=== PATIENT | female | born 1985 | race Hispanic/Latino ===

== ENCOUNTER 2018-03-08 15:18 | Emergency (ER) | payer BC ==
[2018-03-08 16:56] LABS: Urine Bacteria <20 /HPF (<20); Urine Culture Reflex Order NOT NEEDED; Urine RBC <5 /HPF (NONE SEEN)
[2018-03-08 17:07] LABS: Urine Specific Gravity 1.015 (1.005-1.030)
[2018-03-08] MEDS ORDERED: FENTANYL CITR 100 MCG/2 ML ONE (17:20)
--- NOTE | 2018-03-08 17:43 | RAD REPORT ---
EXAM DESCRIPTION: US - Transvaginal Study Probe - 03/08/2018 4:58 pm CLINICAL HISTORY: Abdominal pain, left-sided pelvic pain Preliminary findings provided at the time of the study. COMPARISON: None. TECHNIQUE: Endovaginal sonography was performed. FINDINGS: IUD is in place appearing well positioned. Nabothian cysts are present in the cervix. No m yometrial mass identifiable. A 12 millimeter simple right ovarian cyst is present. Doppler evaluation shows normal blood flow in the right ovarian stroma. No suspicious ovarian or adnexal finding on the right. Left ovary was not identifiable. No left adnexal mass seen. No free fluid or blood in the cul-de-sac. Uterus is 7.4 x 4.6 x 5.6 cm. Right ovary is 2.8 x 2.4 x 2.6 cm. IMPRESSION: Normal size uterus showing no suspicious endometrial or myometrial finding. IUD is well positioned in the fundal portion cervical canal. Small 12 mm cyst right ovary with no right adnexal abnormality. Nonvisualization of the left ovary with no left adnexal mass seen.
--- NOTE | 2018-03-08 18:03 | RAD REPORT ---
EXAM DESCRIPTION: CT - Stone Protocol - 03/08/2018 5:51 pm CLINICAL HISTORY: Flank pain. HERNIA COMPARISON: Stone Protocol dated 03/25/2017 TECHNIQUE: Axial images were obtained without oral or IV contrast. Lack of contrast limits solid org an and vascular assessment. The [id number] spans the entirety of the system partially obscuring uppermost abdomen and lung bases. Coronal reformatted images were obtained and reviewed. All CT scans are performed using dose optimization technique as appropriate and may include automated exposure control or mA/KV adjustment according to patient size. FINDINGS: The lower lung velasco are clear. Imaged portions of the liver and spleen show no suspicious findings on non-contrast imaging. The panc reas and adrenal glands are normal. No pathologic lymphadenopathy in the abdomen or pelvis. No urinary tract stones or obstructive uropathy. No bowel obstruction, free air, free fluid or abscess. Normal appendix noted. No significant bony abnormality. IUD is present in the uterus. Inferior left rectus muscle appears th ickened relative to the right measuring up to 3 cm with mild adjacent fat stranding. This is likely t he result of a moderate rectus muscle strain/hematoma. IMPRESSION: Moderate inferior left rectus muscle strain/ hematoma.
--- NOTE | 2018-03-08 18:13 | ER ---
Nurse's Notes [facility] Name: Barbie Jack Age: 33 yrs Sex: Female : 1985 Arrival Date: 03/08/2018 Time: 15:20 Bed 17 Private MD: Gurjit Easton Diagnosis: Muscle spasm;Muscle tear Presentation: 03/08 15:56 Presenting complaint: Patient states: pt report she was working out and felt a pull in sg her right groin, reports worse when not moving, feels better with walking and activity. Transition of care: patient was not received from another setting of care. Onset of symptoms was March 08, 2018. Risk Assessment: Do you want to hurt yourself or someone else? Patient reports no desire to harm self or others. Initial Sepsis Screen: Does the patient meet any 2 criteria? No. Patient's initial sepsis screen is negative. Does the patient have a suspected source of infection? No. Patient's initial sepsis screen is negative. Care prior to arrival: None. 15:56 Method Of Arrival: Ambulatory sg 15:56 Acuity: AMY 4 sg Historical: - Allergies: 15:22 No Known Allergies; sg - PSHx: 15:22 None; sg - Immunization history:: Adult Immunizations up to date. - Social history:: Smoking status: Patient/guardian denies using tobacco. - Ebola Screening: : Patient negative for fever greater than or equal to 101.5 degrees Fahrenheit, and additional compatible Ebola Virus Disease symptoms Patient denies exposure to infectious person Patient denies travel to an Ebola-affected area in the 21 days before illness onset No symptoms or risks identified at this time. Screenin:00 Abuse screen: Denies threats or abuse. Denies injuries from another. Nutritional hb screening: No deficits noted. Tuberculosis screening: No symptoms or risk factors identified. Fall Risk None identified. Assessment: 16:02 General: Appears in no apparent distress. Behavior is calm, cooperative. Pain: Pain hb currently is 7 out of 10 on a pain scale. Neuro: Level of Consciousness is awake, alert, obeys commands, Oriented to person, place, time, situation. Cardiovascular: Capillary refill < 3 seconds Patient's skin is warm and dry. Respiratory: Airway is patent Respiratory effort is even, unlabored, Respiratory pattern is regular, symmetrical. GI: No signs and/or symptoms were reported involving the gastrointestinal system. : No signs and/or symptoms were reported regarding the genitourinary system. EENT: No signs and/or symptoms were reported regarding the EENT system. Derm: No signs and/or symptoms reported regarding the dermatologic system. Skin is intact, is healthy with good turgor. Musculoskeletal: Reports groin pain. 17:00 Reassessment: Patient appears in no apparent distress at this time. No changes from hb previously documented assessment. Patient and/or family updated on plan of care and expected duration. Pain level reassessed. Patient is alert, oriented x 3, equal unlabored respirations, skin warm/dry/pink. 18:00 Reassessment: Patient appears in no apparent distress at this time. No changes from hb previously documented assessment. Patient and/or family updated on plan of care and expected duration. Pain level reassessed. Patient is alert, oriented x 3, equal unlabored respirations, skin warm/dry/pink. Vital Signs: 15:57 BP 132 / 82; Pulse 70; Resp 16 S; Pulse Ox 100% on R/A; Pain 7/10; sg 17:00 BP 126 / 76; Pulse 72; Resp 15; Pulse Ox 100% on R/A; hb 18:00 BP 114 / 78; Pulse 60; Resp 15; Pulse Ox 100% on R/A; hb ED Course: 15:20 Patient arrived in ED. sb2 15:20 Gurjit Easton DO is Private Physician. sb2 15:22 [facility] Valdiv[facility]C [facility] snw 15:22 Ramos Freedman MD is Attending Physician. snw 15:22 Arm band placed on. sg 15:55 Bre Groves, RN is Primary Nurse. hb 15:57 Triage completed. sg 16:00 Patient has correct armband on for positive identification. Bed in low position. Call light in reach. Side rails up X 1. 16:05 Radiology exam delayed due to lab results not completed at this time. test aa4 not completed at this time. 16:43 Patient taken to ultrasound. via wheelchair. cy 16:58 Transvaginal Study Probe In Process Unspecified. EDMS 17:[address] via wheelchair. vr 17:52 CT Stone Protocol In Process Unspecified. EDMS 18:12 Gurjit Easton DO is Referral Physician. snw 18:30 No provider procedures requiring assistance completed. Patient did not have IV access hb during this emergency room visit. Administered Medications: 17:22 Drug: fentaNYL (PF) 50 mcg Route: IM; Site: right deltoid; hb 18:00 Follow up: Response: No adverse reaction; Pain is decreased hb Outcome: 18:13 Discharge ordered by MD. snw 18:30 Discharged to home ambulatory. hb 18:30 Condition: stable 18:30 Discharge instructions given to patient, Instructed on discharge instructions, follow up and referral plans. medication usage, Demonstrated understanding of instructions, follow-up care, medications, Prescriptions given X 2. 18:40 Patient left the ED. hb Signatures: Dispatcher [employer] EDMS Burak Forrester, RN RN Kandy Riggins, FELT HAT INSPECTOR AND PACKER-C FELT HAT INSPECTOR AND PACKER-Csnw [place] Victoria vr Baxter, Heather, RN RN Darien Sanchez Sheri sb2
--- NOTE | 2018-03-08 18:13 | EDPHYS ---
Physician Documentation [facility] Name: Barbie Jack Age: 33 yrs Sex: Female : 1985 Arrival Date: 03/08/2018 Time: 15:20 Bed 17 Private MD: Lisa Eastonh ED Physician Ramos Freedman HPI: 03/08 16:07 This 33 yrs old Female presents to ER via Ambulatory with complaints of Left snw groin Pain. 16:08 The patient presents with left groin tenderness. Onset: The symptoms/episode snw began/occurred suddenly, this morning. The symptoms do not radiate. Associated signs and symptoms: none. The symptoms are described as shooting, stabbing. Severity of pain: At its worst the pain was moderate severe. The patient has not experienced similar symptoms in the past. The patient has not recently seen a physician. took 800mg ibuprofen. Historical: - Allergies: 15:22 No Known Allergies; sg - PSHx: 15:22 None; sg - Immunization history:: Adult Immunizations up to date. - Social history:: Smoking status: Patient/guardian denies using tobacco. - Ebola Screening: : Patient negative for fever greater than or equal to 101.5 degrees Fahrenheit, and additional compatible Ebola Virus Disease symptoms Patient denies exposure to infectious person Patient denies travel to an Ebola-affected area in the 21 days before illness onset No symptoms or risks identified at this time. ROS: 16:08 Constitutional: Negative for fever, chills, and weight loss, Eyes: Negative for injury, snw pain, redness, and discharge, ENT: Negative for injury, pain, and discharge, Neck: Negative for injury, pain, and swelling, Cardiovascular: Negative for chest pain, palpitations, and edema, Respiratory: Negative for shortness of breath, cough, wheezing, and pleuritic chest pain, Back: Negative for injury and pain, : Negative for injury, bleeding, discharge, and swelling, MS/Extremity: Negative for injury and deformity, Skin: Negative for injury, rash, and discoloration, Neuro: Negative for headache, weakness, numbness, tingling, and seizure. 16:08 Abdomen/GI: Positive for abdominal pain. Exam: 16:08 Constitutional: This is a well developed, well nourished patient who is awake, alert, snw and in no acute distress. Head/Face: Normocephalic, atraumatic. Eyes: Pupils equal round and reactive to light, extra-ocular motions intact. Lids and lashes normal. Conjunctiva and sclera are non-icteric and not injected. Cornea within normal limits. Periorbital areas with no swelling, redness, or edema. ENT: Nares patent. No nasal discharge, no septal abnormalities noted. Tympanic membranes are normal and external auditory canals are clear. Oropharynx with no redness, swelling, or masses, exudates, or evidence of obstruction, uvula midline. Mucous membranes moist. Neck: Trachea midline, no thyromegaly or masses palpated, and no cervical lymphadenopathy. Supple, full range of motion without nuchal rigidity, or vertebral point tenderness. No Meningismus. Chest/axilla: Normal chest wall appearance and motion. Nontender with no deformity. No lesions are appreciated. Cardiovascular: Regular rate and rhythm with a normal S1 and S2. No gallops, murmurs, or rubs. Normal PMI, no JVD. No pulse deficits. Respiratory: Lungs have equal breath sounds bilaterally, clear to auscultation and percussion. No rales, rhonchi or wheezes noted. No increased work of breathing, no retractions or nasal flaring. Back: No spinal tenderness. No costovertebral tenderness. Full range of motion. Skin: Warm, dry with normal turgor. Normal color with no rashes, no lesions, and no evidence of cellulitis. MS/ Extremity: Pulses equal, no cyanosis. Neurovascular intact. Full, normal range of motion. Neuro: Awake and alert, GCS 15, oriented to person, place, time, and situation. Cranial nerves II-XII grossly intact. Motor strength 5/5 in all extremities. Sensory grossly intact. Cerebellar exam normal. Normal gait. 16:08 Abdomen/GI: Inspection: abdomen appears normal, Bowel sounds: normal, Palpation: moderate abdominal tenderness, severe abdominal tenderness, in the left lower quadrant. Vital Signs: 15:57 BP 132 / 82; Pulse 70; Resp 16 S; Pulse Ox 100% on R/A; Pain 7/10; sg 17:00 BP 126 / 76; Pulse 72; Resp 15; Pulse Ox 100% on R/A; hb 18:00 BP 114 / 78; Pulse 60; Resp 15; Pulse Ox 100% on R/A; hb MDM: 16:01 Patient medically screened. snw 18:31 Data reviewed: vital signs, nurses notes. Data interpreted: Pulse oximetry: on room air snw is 100 %. Interpretation: normal. Counseling: I had a detailed discussion with the patient and/or guardian regarding: the historical points, exam findings, and any diagnostic results supporting the discharge/admit diagnosis, lab results, radiology results, the need for outpatient follow up, to return to the emergency department if symptoms worsen or persist or if there are any questions or concerns that arise at home. Special discussion: Based on the history and exam findings, there is no indication for further emergent testing or inpatient evaluation. I discussed with the patient/guardian the need to see the primary care provider for further evaluation of the symptoms. 03/08 15:23 Order name: Urine Culture snw 03/08 15:23 Order name: Urine Microscopic Only; Complete Time: 17:00 snw 03/08 16:34 Order name: Urine --Ancillary (enter results); Complete Time: 17:08 bd 03/08 16:42 Order name: Transvaginal Study Probe; Complete Time: 17:45 EDMS 03/08 16:56 Order name: CT Stone Protocol; Complete Time: 18:10 snw 03/08 15:23 Order name: Urine Test (obtain specimen); Complete Time: 16:12 snw 03/08 15:23 Order name: Urine Dipstick-Ancillary (obtain specimen); Complete Time: 16:12 snw Administered Medications: 17:22 Drug: fentaNYL (PF) 50 mcg Route: IM; Site: right deltoid; hb 18:00 Follow up: Response: No adverse reaction; Pain is decreased hb Disposition: 03/09 07:27 Co-signature as Attending Physician, Ramos Freedman MD I agree with the assessment and dionicio plan of care. Disposition: 03/08/18 18:13 Discharged to Home. Impression: Muscle spasm, Muscle tear. - Condition is Stable. - Discharge Instructions: Muscle Cramps and Spasms, Muscle Strain, Muscle Pain, Adult, Heat Therapy. - Prescriptions for Diclofenac Sodium 75 mg Oral Tablet Sustained Release - take 1 tablet by ORAL route 2 times per day; 30 tablet. orphenadrine citrate 100 mg Oral Tablet Sustained Release - take 1 tablet by ORAL route 2 times per day As needed; 20 tablet. - Work release form, Medication Reconciliation Form, Thank You Letter, Antibiotic Education, Prescription Opioid Use form. - Follow up: Gurjit Easton DO; When: 2 - 3 days; Reason: Recheck today's complaints, Continuance of care, Re-evaluation by your physician. Follow up: Emergency Department; When: As needed; Reason: Worsening of condition. Signatures: Dispatcher [employer] [facility] Burak Forrester, Ramos Davis RN, MD MD cha Therrien, Shelly, CLOTH SANDER-C CLOTH SANDER-Csnw Bre Groves RN RN Corrections: (The following items were deleted from the chart) 03/08 16:42 16:01 Pelvis Complete+US.RAD.BRZ ordered. [facility] 18:40 18:13 03/08/2018 18:13 Discharged to Home. Impression: Muscle spasm; Muscle tear. hb Condition is Stable. Forms are Medication Reconciliation Form, Thank You Letter, Antibiotic Education, Prescription Opioid Use. Follow up: Gurjit Easton; When: 2 - 3 days; Reason: Recheck today's complaints, Continuance of care, Re-evaluation by your physician. Follow up: Emergency Department; When: As needed; Reason: Worsening of condition. snw
[2018-03-08 18:46] VITALS: O2SAT 100
[2018-03-08 18:49] VITALS: BP 114/78
== END 2018-03-08 18:40 | disposition home or self-care (01) ==
LOC: ER 15:18
DX: S39.011A Strain of muscle, fascia and tendon of abdomen, initial encounter (principal); M62.838 Other muscle spasm
CPT/HCPCS: 74176; 76377; 76830; 81015; 81025; 87086; 87088; 96372; 99284; J3010

== ENCOUNTER 2019-07-05 15:49 | Emergency (ER) | payer BC, SELFPAY ==
--- NOTE | 2019-07-05 17:24 | EDPHYS ---
Physician Documentation [facility] Name: Barbie Antoine Age: 34 yrs Sex: Female : 1985 Arrival Date: 07/05/2019 Time: 15:51 Bed 23 Private MD: ED Physician Ramos Freedman HPI: 07/05 17:01 This 34 yrs old Female presents to ER via Ambulatory with complaints of jr8 Headache, Weakness. 17:01 The patient complains of pain to the diffuse. Onset: The symptoms/episode jr8 began/occurred acutely, today. Associated signs and symptoms: Pertinent positives: malaise, sore throat, rash on lip. Severity of symptoms: At its worst the pain was mild, in the emergency department the pain is unchanged. The symptoms are alleviated by nothing. the symptoms are aggravated by nothing. The patient has not experienced similar symptoms in the past. The patient has not recently seen a physician. Stated that she took some Ibuprofen that helped but still not feeling well. 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 - Social history:: Smoking status: Patient/guardian denies using tobacco. - Ebola Screening: : No symptoms or risks identified at this time. ROS: 17:01 Eyes: Negative for injury, pain, redness, and discharge, Neck: Negative for injury, jr8 pain, and swelling, Cardiovascular: Negative for chest pain, palpitations, and edema, Respiratory: Negative for shortness of breath, cough, wheezing, and pleuritic chest pain, Abdomen/GI: Negative for abdominal pain, nausea, vomiting, diarrhea, and constipation, Back: Negative for injury and pain, MS/Extremity: Negative for injury and deformity, Skin: Negative for injury, rash, and discoloration. 17:01 Constitutional: Positive for malaise. 17:01 ENT: Positive for sore throat, Negative for drainage from ear(s), ear pain, rhinorrhea, sinus congestion, difficulty swallowing, difficulty handling secretions, hoarseness. 17:01 Neuro: Positive for headache, Negative for altered mental status, dizziness, gait disturbance, hearing loss, loss of consciousness, numbness, seizure activity, speech changes, syncope, near syncope, tingling, tinnitus, tremor, visual changes, weakness. Exam: 17:01 Eyes: Pupils equal round and reactive to light, extra-ocular motions intact. Lids and jr8 lashes normal. Conjunctiva and sclera are non-icteric and not injected. Cornea within normal limits. Periorbital areas with no swelling, redness, or edema. ENT: Nares patent. No nasal discharge, no septal abnormalities noted. Tympanic membranes are normal and external auditory canals are clear. Oropharynx with mild posterior pharyngeal and tonsillar redness. No swelling, or masses, exudates, or evidence of obstruction, uvula midline. Mucous membranes moist. Neck: Trachea midline, no thyromegaly or masses palpated, and no cervical lymphadenopathy. Supple, full range of motion without nuchal rigidity, or vertebral point tenderness. No Meningismus. Cardiovascular: Regular rate and rhythm with a normal S1 and S2. No gallops, murmurs, or rubs. Normal PMI, no JVD. No pulse deficits. Respiratory: Lungs have equal breath sounds bilaterally, clear to auscultation and percussion. No rales, rhonchi or wheezes noted. No increased work of breathing, no retractions or nasal flaring. Abdomen/GI: Soft, non-tender, with normal bowel sounds. No distension or tympany. No guarding or rebound. No evidence of tenderness throughout. Back: No spinal tenderness. No costovertebral tenderness. Full range of motion. Skin: Warm, dry with normal turgor. Normal color with no rashes, no lesions, and no evidence of cellulitis. MS/ Extremity: Pulses equal, no cyanosis. Neurovascular intact. Full, normal range of motion. Neuro: Awake and alert, GCS 15, oriented to person, place, time, and situation. Cranial nerves II-XII grossly intact. Motor strength 5/5 in all extremities. Sensory grossly intact. Cerebellar exam normal. Normal gait. 17:01 Head/face: Noted is vesicular rash noted to upper lip. Vital Signs: 16:00 BP 140 / 83; Pulse 80; Resp 16; Temp 97.7; Pulse Ox 100% on R/A; Weight 79.38 kg; hb Height 5 ft. 5 in. (165.10 cm); Pain 0/10; 17:00 BP 122 / 76; Pulse 76; Resp 17 S; Pulse Ox 100% on R/A; ca1 16:00 Body Mass Index 29.12 (79.38 kg, 165.10 cm) hb MDM: 16:34 Patient medically screened. [facility] 17:22 Data reviewed: vital signs, nurses notes, lab test result(s), and as a result, I will jr8 discharge patient. Data interpreted: Pulse oximetry: on room air is 100 %. Interpretation: normal. Counseling: I had a detailed discussion with the patient and/or guardian regarding: the historical points, exam findings, and any diagnostic results supporting the discharge/admit diagnosis, lab results, the need for outpatient follow up, a family practitioner, to return to the emergency department if symptoms worsen or persist or if there are any questions or concerns that arise at home. 07/05 16:40 Order name: Strep; Complete Time: 17:22 ca1 07/05 16:40 Order name: Flu; Complete Time: 17:22 ca1 Administered Medications: 17:27 Drug: TORadol - Ketorolac 15 mg Route: IM; Site: right deltoid; ca1 17:27 Follow up: Response: Medication administered at discharge. ca1 Disposition: 07/06 07:14 Co-signature as Attending Physician, Ramos Freedman MD I agree with the assessment and [facility] plan of care. Disposition: 07/05/19 17:23 Discharged to Home. Impression: Acute streptococcal tonsillitis, unspecified, Herpesviral [herpes simplex] infections. - Condition is Stable. - Discharge Instructions: Strep Throat, Tonsillitis. - Prescriptions for Augmentin 875- 125 mg Oral Tablet - take 1 tablet by ORAL route every 12 hours for 10 days; 20 tablet. Acyclovir 400 mg Oral Tablet - take 1 tablet by ORAL route every 8 hours for 7 days; 21 tablet. - Medication Reconciliation Form, Thank You Letter, Antibiotic Education, Prescription Opioid Use, Work release form form. - Follow up: Private Physician; When: 1 week; Reason: Recheck today's complaints, Continuance of care, Re-evaluation by your physician. - Problem is new. - Symptoms have improved. Signatures: Dispatcher [employer] Ramos Florian MD MD cha Roszak, Josh, PA PA jr8 Bre Groves, RN RN hb Marissa Shaw RN RN ca1 Corrections: (The following items were deleted from the chart) 07/05 17:30 17:23 07/05/2019 17:23 Discharged to Home. Impression: Acute streptococcal tonsillitis, jr8 unspecified. Condition is Stable. Forms are Medication Reconciliation Form, Thank You Letter, Antibiotic Education, Prescription Opioid Use. Follow up: Private Physician; When: 1 week; Reason: Recheck today's complaints, Continuance of care, Re-evaluation by your physician. Problem is new. Symptoms have improved. jr8 17:37 17:30 07/05/2019 17:23 Discharged to Home. Impression: Acute streptococcal tonsillitis, ca1 unspecified; Herpesviral [herpes simplex] infections. Condition is Stable. Discharge Instructions: Strep Throat, Tonsillitis. Prescriptions for Augmentin 875-125 mg Oral Tablet - take 1 tablet by ORAL route every 12 hours for 10 days; 20 tablet, Acyclovir 400 mg Oral Tablet - take 1 tablet by ORAL route every 8 hours for 7 days; 21 tablet. and Forms are Medication Reconciliation Form, Thank You Letter, Antibiotic Education, Prescription Opioid Use, Work release form. Follow up: Private Physician; When: 1 week; Reason: Recheck today's complaints, Continuance of care, Re-evaluation by your physician. Problem is new. Symptoms have improved. jr8
--- NOTE | 2019-07-05 17:24 | ER ---
Nurse's Notes [facility] Name: Barbie Antoine Age: 34 yrs Sex: Female : 1985 Arrival Date: 07/05/2019 Time: 15:51 Bed 23 Private MD: Diagnosis: Acute streptococcal tonsillitis, unspecified;Herpesviral [herpes simplex] infections Presentation: 07/05 15:58 Presenting complaint: Sore throat, difficulty swallowing, and subjective fever x 3 hb days, blisters on upper lip and headache upon waking today. Transition of care: patient was not received from another setting of care. Onset of symptoms was July 03, 2019. Risk Assessment: Do you want to hurt yourself or someone else? Patient reports no desire to harm self or others. Initial Sepsis Screen: Does the patient meet any 2 criteria? No. Patient's initial sepsis screen is negative. Does the patient have a suspected source of infection? No. Patient's initial sepsis screen is negative. Care prior to arrival: None. 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 - Social history:: Smoking status: Patient/guardian denies using tobacco. - Ebola Screening: : No symptoms or risks identified at this time. Screenin:35 Abuse screen: Denies threats or abuse. Denies injuries from another. Nutritional ca1 screening: No deficits noted. Tuberculosis screening: No symptoms or risk factors identified. Fall Risk None identified. Assessment: 16:35 General: Appears in no apparent distress. comfortable, Behavior is calm, cooperative, ca1 appropriate for age. General: Reports chills for 1-2 days. Pain: Complains of pain in all over Pain currently is 7 out of 10 on a pain scale. Neuro: Level of Consciousness is awake, alert, obeys commands, Oriented to person, place, time, situation. Cardiovascular: Heart tones S1 S2 present Capillary refill < 3 seconds Patient's skin is warm and dry. Respiratory: Airway is patent Respiratory effort is even, unlabored, Respiratory pattern is regular, symmetrical, Breath sounds are clear bilaterally. GI: Abdomen is round non-distended, Bowel sounds present X 4 quads. Abd is soft and non tender X 4 quads. : No signs and/or symptoms were reported regarding the genitourinary system. EENT: Throat is reddened has enlarged tonsils bilaterally with gag reflex present. Derm: Skin is intact, is healthy with good turgor, Skin is pink, warm \T\ dry. Musculoskeletal: Circulation, motion, and sensation intact. Capillary refill < 3 seconds. 17:28 Reassessment: Patient appears in no apparent distress at this time. Patient is alert, ca1 oriented x 3, equal unlabored respirations, skin warm/dry/pink. Vital Signs: 16:00 BP 140 / 83; Pulse 80; Resp 16; Temp 97.7; Pulse Ox 100% on R/A; Weight 79.38 kg; hb Height 5 ft. 5 in. (165.10 cm); Pain 0/10; 17:00 BP 122 / 76; Pulse 76; Resp 17 S; Pulse Ox 100% on R/A; ca1 16:00 Body Mass Index 29.12 (79.38 kg, 165.10 cm) hb ED Course: 15:51 Patient arrived in ED. ag5 16:00 Triage completed. hb 16:00 Arm band placed on. hb 16:29 Marissa Shaw, RN is Primary Nurse. ca1 16:30 Leo Zuniga PA is PHCP. jr8 16:34 Ramos Freedman MD is Attending Physician. [facility] 16:35 Patient has correct armband on for positive identification. Bed in low position. Call ca1 light in reach. Side rails up X 1. Pulse ox on. NIBP on. Warm blanket given. 16:35 No provider procedures requiring assistance completed. Patient did not have IV access ca1 during this emergency room visit. Administered Medications: 17:27 Drug: TORadol - Ketorolac 15 mg Route: IM; Site: right deltoid; ca1 17:27 Follow up: Response: Medication administered at discharge. ca1 Outcome: 17:23 Discharge ordered by . jr8 17:36 Discharged to home ambulatory. ca1 17:36 Condition: stable 17:36 Discharge instructions given to patient, Instructed on discharge instructions, follow up and referral plans. medication usage, Demonstrated understanding of instructions, follow-up care, medications, Prescriptions given X 2. 17:37 Patient left the ED. ca1 Signatures: Ramos Freedman MD MD cha Roszak, Josh, PA PA jr8 Bre Groves, RN RN Marissa Shaw RN RN ca1 Bambi Meade ag5 Corrections: (The following items were deleted from the chart) 17:28 17:28 BP 122 / 76; Pulse 76bpm; Resp 17bpm; Spontaneous; Pulse Ox 100% RA; ca1 ca1
[2019-07-05] MEDS ORDERED: KETOROLAC 30 MG/ML INJ ONE (17:28)
[2019-07-05 17:52] VITALS: TEMP 97.7; O2SAT 100
[2019-07-05 17:53] VITALS: BP 122/76
== END 2019-07-05 17:37 | disposition home or self-care (01) ==
LOC: ER 15:49
DX: J03.00 Acute streptococcal tonsillitis, unspecified (principal); B00.9 Herpesviral infection, unspecified
CPT/HCPCS: 87081; 87804; 96372; 99283

== ENCOUNTER 2020-01-18 21:38 | Emergency (ER) | payer SELFPAY ==
[2020-01-18] MEDS ORDERED: MORPHINE 2 MG/ML SYR ONE (23:15)
[2020-01-18 23:24] LABS: Absolute Lymphocytes (CBC) 2.7 K/uL (0.7-4.9); Basophils % 0.7 % (0-1.3); Lymphocytes % 30.6 % (15.3-44.8); MPV 8.3 fL (7.6-11.3)
[2020-01-18] MEDS ORDERED: MEPERIDINE HCL 25 MG/ML SYR ONE (23:40)
[2020-01-18 23:41] LABS: Potassium 3.4 mmol/L (3.5-5.1)
--- NOTE | 2020-01-19 01:36 | ER ---
Nurse's Notes [facility] Name: Barbie Antoine Age: 35 yrs Sex: Female : 1985 Arrival Date: 01/18/2020 Time: 21:42 Bed 14 Private MD: Diagnosis: Abdominal and pelvic pain;Other ovarian cysts Presentation: 01/17 21:52 Chief complaint: Patient states: Lower abdominal cramping, mostly on the RLQ, constant ca1 radiating to the back. PT has IUD and reports unable to feel the string today. Denies vaginal bleeding. Reports nausea with the pain. Coronavirus screen: Patient denies a cough. Patient denies shortness of breath or difficulty breathing. Patient denies measured and/or subjective temperature greater than 100.4F prior to today's visit. Patient denies travel on a cruise ship or to a country the [facility] currently lists as an affected area. Patient denies contact with known and/or suspected case of COVID-19. Proceed with normal triage. Ebola Screen: Patient negative for fever greater than or equal to 101.5 degrees Fahrenheit, and additional compatible Ebola Virus Disease symptoms Patient denies exposure to infectious person. Patient denies travel to an Ebola-affected area in the 21 days before illness onset. No symptoms or risks identified at this time. Initial Sepsis Screen: Does the patient meet any 2 criteria? No. Patient's initial sepsis screen is negative. Does the patient have a suspected source of infection? No. Patient's initial sepsis screen is negative. Risk Assessment: Do you want to hurt yourself or someone else? Patient reports no desire to harm self or others. Onset of symptoms was January 18, 2020. 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 - Social history:: Smoking status: Patient denies any tobacco usage or history of. - Family history:: not pertinent. - Hospitalizations: : No recent hospitalization is reported. Screenin:08 Abuse screen: Denies threats or abuse. Nutritional screening: No deficits noted. mt2 Tuberculosis screening: No symptoms or risk factors identified. Fall Risk None identified. Assessment: 22:08 Reassessment: Patient and/or family updated on plan of care and expected duration. Pain mt2 level reassessed. Patient is alert, oriented x 3, equal unlabored respirations, skin warm/dry/pink. PER PT BELIEVES IUD IS DISPLACED. Neuro: No deficits noted. Cardiovascular: No deficits noted. Respiratory: No deficits noted. GI: No deficits noted. : No deficits noted. : Reports DISCOMFORT DUE TO IUD OUT OF PLACED. EENT: No deficits noted. Derm: No deficits noted. Musculoskeletal: No deficits noted. 22:10 Pain: Complains of pain in pelvis Pain currently is 6 out of 10 on a pain scale. mt2 Quality of pain is described as crampy. 23:00 Reassessment: Patient and/or family updated on plan of care and expected duration. Pain mt2 level reassessed. Patient is alert, oriented x 3, equal unlabored respirations, skin warm/dry/pink. General: Appears uncomfortable, Behavior is cooperative. Pain: Complains of pain in pelvis Pain currently is 10 out of 10 on a pain scale. Quality of pain is described as crampy. 01/18 00:13 Reassessment: Patient and/or family updated on plan of care and expected duration. Pain mt2 level reassessed. Patient is alert, oriented x 3, equal unlabored respirations, skin warm/dry/pink. Patient denies pain at this time. General: Appears comfortable, Behavior is cooperative. 01:13 Reassessment: Patient and/or family updated on plan of care and expected duration. Pain mt2 level reassessed. Patient is alert, oriented x 3, equal unlabored respirations, skin warm/dry/pink. Patient denies pain at this time. General: Appears comfortable, Behavior is calm, cooperative. Vital Signs: 01/17 21:52 BP 136 / 95; Pulse 69; Resp 17 S; Temp 97.5(TE); Pulse Ox 100% on R/A; Weight 76.66 kg ca1 (R); Height 5 ft. 5 in. (165.10 cm) (R); 22:30 BP 141 / 92; Pulse 75; Resp 22; Pulse Ox 100% ; Pain 10/10; mt2 01/18 00:13 BP 120 / 78; Pulse 98; Pulse Ox 100% on R/A; Pain 0/10; mt2 01:14 BP 104 / 79; Pulse 81; Resp 16; Pulse Ox 100% ; Pain 0/10; mt2 01/17 21:52 Body Mass Index 28.12 (76.66 kg, 165.10 cm) ca1 ED Course: 01/17 21:42 Patient arrived in ED. es 21:50 Concha Malloy RN is Primary Nurse. mt2 21:54 Triage completed. ca1 21:55 Arm band placed on right wrist. ca1 22:09 Dileep Gonzalez MD is Attending Physician. rn 22:10 Patient has correct armband on for positive identification. Placed in gown. Bed in low mt2 position. Call light in reach. Side rails up X 1. 22:54 US Pelvis Complete In Process Unspecified. EDMS 23:05 Inserted saline lock: 20 gauge in right forearm, using aseptic technique. Blood jd3 collected. 01/18 00:12 CT Abd/Pelvis - IV Contrast Only In Process Unspecified. EDMS 01:55 No provider procedures requiring assistance completed. IV discontinued, intact, mt2 bleeding controlled, No redness/swelling at site. Pressure dressing applied. Administered Medications: 01/17 23:11 Drug: morphine 2 mg Route: IVP; Site: right forearm; mt2 23:37 Follow up: Response: No adverse reaction; Pain is unchanged, physician notified mt2 23:36 Drug: Demerol 25 mg Route: IVP; Site: right forearm; mt2 01/18 00:13 Follow up: Response: No adverse reaction; Pain is decreased mt2 Outcome: 01:35 Discharge ordered by . rn 01:55 Discharged to home mt2 01:55 Condition: good 01:55 Discharge instructions given to patient, Instructed on discharge instructions, follow up and referral plans. Demonstrated understanding of instructions, follow-up care, medications, Prescriptions given X 2. 01:56 Patient left the ED. mt2 Signatures: Dispatcher [employer] EDMelissa Gant Roman, MD MD rn Davies, Jonathon, RN RN jd3 Colin, Marissa RN DIONE ca1 Concha Malloy RN RN mt2
--- NOTE | 2020-01-19 01:36 | EDPHYS ---
Physician Documentation [facility] Name: Barbie Antoine Age: 35 yrs Sex: Female : 1985 Arrival Date: 01/18/2020 Time: 21:42 Bed 14 Private MD: ED Physician Dileep Gonzalez HPI: 01/17 23:01 This 35 yrs old Female presents to ER via Ambulatory with complaints of rn cramps,iud check. 23:01 The patient presents with abdominal pain right lower quadrant. Onset: The rn symptoms/episode began/occurred just prior to arrival. The symptoms do not radiate. The symptoms are described as crampy. Modifying factors: The symptoms are alleviated by nothing, the symptoms are aggravated by nothing. Severity of pain: At its worst the pain was moderate in the emergency department the pain has improved. The patient has not experienced similar symptoms in the past. The patient has not recently seen a physician. Reports 2 hours of intermittent cramping, right pelvic pain, no trauma, reports didn't feel IUD string today and checks weekly. NO fever/vomiting/diarrhea. Reports slight increased urinary frequency. Reports abnormal pap smear 3 years ago and hasn't followed up. . 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 - Social history:: Smoking status: Patient denies any tobacco usage or history of. - Family history:: not pertinent. - Hospitalizations: : No recent hospitalization is reported. ROS: 23:01 Constitutional: Negative for fever, chills, and weight loss, Eyes: Negative for injury, rn pain, redness, and discharge, Neck: Negative for injury, pain, and swelling, Cardiovascular: Negative for chest pain, palpitations, and edema, Respiratory: Negative for shortness of breath, cough, wheezing, and pleuritic chest pain, Abdomen/GI: Negative for nausea, vomiting, diarrhea, and constipation, Back: Negative for injury and pain, : Negative for injury, and swelling, MS/Extremity: Negative for injury and deformity, Skin: Negative for injury, rash, and discoloration, Neuro: Negative for headache, weakness, numbness, tingling, and seizure. Exam: 23:01 Constitutional: This is a well developed, well nourished patient who is awake, alert, rn and in no acute distress. Head/Face: Normocephalic, atraumatic. Cardiovascular: Regular rate and rhythm. No pulse deficits. Respiratory: No increased work of breathing, no retractions or nasal flaring. Abdomen/GI: soft, mild right pelvic tenderness, no rebound or masses Skin: Warm, dry MS/ Extremity: Pulses equal, no cyanosis. Neurovascular intact. Full, normal range of motion. Equal circumference. Neuro: Awake and alert, GCS 15 Vital Signs: 21:52 BP 136 / 95; Pulse 69; Resp 17 S; Temp 97.5(TE); Pulse Ox 100% on R/A; Weight 76.66 kg ca1 (R); Height 5 ft. 5 in. (165.10 cm) (R); 22:30 BP 141 / 92; Pulse 75; Resp 22; Pulse Ox 100% ; Pain 10/10; mt2 01/18 00:13 BP 120 / 78; Pulse 98; Pulse Ox 100% on R/A; Pain 0/10; mt2 01:14 BP 104 / 79; Pulse 81; Resp 16; Pulse Ox 100% ; Pain 0/10; mt2 01/17 21:52 Body Mass Index 28.12 (76.66 kg, 165.10 cm) ca1 MDM: 01/17 22:09 Patient medically screened. rn 01/18 00:19 ED course: No acute findings on u/s per u/s tech, no torsion or cyst, no pelvic free rn fluid, IUD seems in place. . 00:19 ED course: UPT neg.. rn 01:33 Differential diagnosis: appendicitis, non-specific abd pain, Ovarian Torsion, Tubal rn Ovarian Abcess, Ureterolithiasis, urinary tract infection, ovarian cyst. Data reviewed: vital signs, nurses notes, lab test result(s), radiologic studies, CT scan, ultrasound, and as a result, I will discharge patient. Counseling: I had a detailed discussion with the patient and/or guardian regarding: the historical points, exam findings, and any diagnostic results supporting the discharge/admit diagnosis, lab results, radiology results, the need for outpatient follow up, to return to the emergency department if symptoms worsen or persist or if there are any questions or concerns that arise at home. Response to treatment: the patient's symptoms have markedly improved after treatment, the patient's condition has returned to base line, the patient is now symptom free, and as a result, I will discharge patient. ED course: Neg UA/UPT, neg CT abdomen and u/s of pelvis, patient reports some vaginal discharge, will treat as possible PID vs ovarian cyst causing pain. States sexual partner is not exclusive. Has [employer] appt in 7 week. Return precautions given and understood. . 01/17 22:15 Order name: Basic Metabolic Panel; Complete Time: 00:03 01/17 22:15 Order name: CBC with Diff; Complete Time: 23:34 01/17 22:15 Order name: US Pelvis Complete 01/17 22:42 Order name: Urine Dipstick--Ancillary (enter results) [facility] 01/17 22:42 Order name: Urine --Ancillary (enter results) [facility] 01/17 22:43 Order name: CT Abd/Pelvis - IV Contrast Only 01/17 22:15 Order name: Urine Test (obtain specimen); Complete Time: 23:04 01/17 22:15 Order name: IV Saline Lock; Complete Time: 23:04 01/17 22:15 Order name: Labs collected and sent; Complete Time: 23:04 01/17 22:15 Order name: NPO; Complete Time: 22:24 01/17 22:15 Order name: Urine Dipstick-Ancillary (obtain specimen); Complete Time: 23:04 rn Administered Medications: 01/17 23:11 Drug: morphine 2 mg Route: IVP; Site: right forearm; mt2 23:37 Follow up: Response: No adverse reaction; Pain is unchanged, physician notified mt2 23:36 Drug: Demerol 25 mg Route: IVP; Site: right forearm; mt2 01/18 00:13 Follow up: Response: No adverse reaction; Pain is decreased mt2 Disposition: 01/19/20 01:35 Discharged to Home. Impression: Abdominal and pelvic pain, Other ovarian cysts. - Condition is Stable. - Discharge Instructions: Ovarian Cyst, Pelvic Pain, Female. - Prescriptions for Flagyl 500 mg Oral Tablet - take 1 tablet by ORAL route every 12 hours for 10 days; 20 tablet. Doxycycline Monohydrate 100 mg Oral Tablet - take 1 tablet by ORAL route every 12 hours for 10 days; 20 tablet. - Medication Reconciliation Form, Thank You Letter, Antibiotic Education, Prescription Opioid Use form. - Follow up: Private Physician; When: As needed; Reason: Recheck today's complaints, Re-evaluation by your physician. - Problem is new. - Symptoms have improved. Signatures: Dispatcher [employer] EDMS Dileep Gonzalez MD MD rn Acob, DIONE Ann RN ca1 Concha Malloy RN RN mt2 Corrections: (The following items were deleted from the chart) 01:56 01:35 01/19/2020 01:35 Discharged to Home. Impression: Abdominal and pelvic pain; Other mt2 ovarian cysts. Condition is Stable. Forms are Medication Reconciliation Form, Thank You Letter, Antibiotic Education, Prescription Opioid Use. Follow up: Private Physician; When: As needed; Reason: Recheck today's complaints, Re-evaluation by your physician. Problem is new. Symptoms have improved. rn
[2020-01-19 02:14] VITALS: TEMP 97.5; O2SAT 100
[2020-01-19 02:19] VITALS: BP 104/79
[2020-01-19 02:41] LABS: Urine Blood NEGATIVE (NEG); Urine Glucose NEGATIVE (NEG); Urine Protein 1+ (NEG); Urine Specific Gravity 1.015 (1.005-1.030); Urine pH >8.5 (5.0-7.0)
--- NOTE | 2020-01-19 08:07 | RAD REPORT ---
EXAM DESCRIPTION: US - Pelvis Complete - 01/18/2020 10:53 pm CLINICAL HISTORY: Pelvic pain COMPARISON: CT scan January 18, 2020 FINDINGS: The uterus measures 9 x 5 x 4 centimeters. An IUD is present within the endometrium. No ut erine fibroid. Small nabothian cysts within the cervix The ovaries are normal in size and echotexture with normal blood flow The right and left adnexae are unremarkable No significant free fluid IMPRESSION: Unremarkable pelvic ultrasound
--- NOTE | 2020-01-19 16:53 | RAD REPORT ---
EXAM DESCRIPTION: CT - Abdomen Pelvis W Contrast - 01/19/2020 4:32 am CLINICAL HISTORY: 35-year-old female with RIGHT pelvic pain. COMPARISON: None. TECHNIQUE: CT of the abdomen and pelvis was performed following intravenous administration of contra st. Oral contrast was not administered. Multiplanar reformatted images were provided. This exam was p erformed according to our departmental dose optimization program which includes use of automated expo sure control, adjustment of the mA and/or kV according to patient size and/or use of iterative recons truction technique. FINDINGS: Chest: Evaluation through the lung bases reveals no focal opacity, pleural effusion or pne umothorax. Heart size is within normal limits. No pericardial effusion. Abdomen and pelvis: The liver, gallbladder, pancreas, spleen, bilateral kidneys and bilateral adrenal glands are within normal limits. The vessels are patent and normal in caliber. No abdominopelvic lymph nodes are noted to be pathologically enlarged by CT measurement criteria. The bowel is within normal limits without abnormal bowel wall thickness or bowel dilation. No free air. No free abdominopelvic fluid collections. The appendix is within normal limits. Intraute rine device is identified within the central uterine fundus. The uterus and adnexa appear to be withi n normal limits of a contrast-enhanced CT examination. Crenulated focus of enhancement is identified within the RIGHT ovary measuring 17 mm, (series 501, image 66) compatible with a corpus luteum type c yst. The osseous structures are within normal limits. Suspected limbus vertebrae of the anterior superior aspect of the S1 vertebral level. Small umbilical fat-containing hernia. IMPRESSION: 1. No specific acute intra-abdominal findings are noted to suggest etiology of the patient's abdomina l pain. 2. 1.7 cm corpus luteum ovarian cyst. No follow-up imaging is recommended. Reference: J Am Abbe Radiol 2013;10:[id number] Electronically signed by: Karina Cheatham MD 01/19/2020 12:29 AM CDT Due to temporary technical issues with the PACS/Fluency reporting system, reports are being signed by the in house radiologist without review as a courtesy to ensure prompt reporting. The interpreting r adiologist is fully responsible for the content of the report.
== END 2020-01-19 01:56 | disposition home or self-care (01) ==
LOC: ER 21:38
DX: N83.299 Other ovarian cyst, unspecified side (principal)
CPT/HCPCS: 36415; 74177; 76856; 80048; 81003; 81025; 85025; 96374; 96375; 99284; J2175; J2270; Q9967

== ENCOUNTER 2021-05-21 14:33 | Emergency (ER) | payer SELFPAY ==
--- OUTSIDE RECORDS SUMMARY | 2021-05-21 14:38 | XMS REPORT | Continuity of Care Document ---
:1985 Author Organization [facility] t Address [address] [place] [address] Care Team Providers Name Role Phone Pcp, Patient Does Not Have A Primary Care Physician [id number] AKINSARINA C Attending Clinician Unavailable Darren HOYOS C Attending Clinician Doctor Unassigned, Name Attending Clinician Unavailable Pcp, Does Not Have A Attending Clinician Anny OLIVERA Attending Clinician Unavailable Payers Payer Name Policy Type Policy Number Effective Date Expiration Date S ource Problems Condition Condition Condition Status Onset Resolution Last Treating Co mments Source Name Details Category Date Date Treatment Clinician Date Elevated Elevated Disease Active Unive rs blood blood 3-18 ity of pressure pressure 00:00: [place] reading reading 00 Medical without without Branch diagnosis diagnosis of of hypertensi hypertensi on on Other Other Disease Active Univers general general 3-18 [place] advice and advice 00 Me dical for for Branch contracept contracept genaro genaro management management Well woman Well woman Disease Active U nivers exam exam 1-05 ity of 00:00: [place] 00 Medical Branch IUD IUD Disease Active Univers (intrauter (intrauter 1-05 it y of ine ine 00:00: [place] device) in device) in [address] Branch Over Over Disease Active Univers weight weight 1-05 ity of 00:00: [place] 00 Medical Branch Obese Obese Disease Active Univers 1-05 ity of 00:00: [address] Allergies, Adverse Reactions, Alerts Allergy Allergy Status Severity Reaction(s) Onset Inactive Treating Comm ents Source Name Type Date Date Clinician NO KNOWN Drug Active Univers ALLERGIE Class ity of S [facility] Social History Social Habit Start Date Stop Date Quantity Comments Source Exposure to Not sure [facility] SARS-CoV-2 [facility] (event) [place] Tobacco use and 2020-09-06 2020-09-06 Never used Universit y of exposure 00:00:00 00:00:00 [facility] Alcohol intake 2020-09-06 2020-09-06 Current drinker Unive rsity of 00:00:00 00:00:00 of alcohol [facility] (finding) [place] Alcohol Comment 2020-09-06 2020-09-06 Socially Universit y of 00:00:00 00:00:00 [facility] Sex [birth year] At [birth year] Universit y of 00:00:00 00:00:00 [facility] Smoking Status Start Date Stop Date Source Never smoker [facility] Medications Ordered Filled Start Stop Current Ordering Indication Dosage Frequency Signature Comments Components Source Medication Medication Date Date Medication? Clinician (SIG) Name Name metroNIDAZO 2020- No [id number] 2000mg Take 4 Univers LE 500 mg 3-29 03-30 tablets by ity of tablet 00:00[place] 04[place]59 [place] for 1 Medical dose. Branch metroNIDAZO 2020- No [id number] 2000mg Take 4 Univers LE 500 mg 3-29 03-30 tablets by ity of tablet 00:00: 04:59 [place] now for 1 Medical dose. Branch metroNIDAZO 2020- No [id number] 2000mg Take 4 Univers LE 500 mg 3-29 03-30 tablets by ity of tablet 00:00: 04:59 [place] now for 1 Medical dose. Branch Nitrofurant Yes [id number] 100mg Take 1 Univers oin&Nit. 3-22 capsule by ity o f [place] (MACROBID[place] 00 (two) Medical 100 mg times Branch capsule daily. metroNIDAZO 2021-0 Yes [id number] 500mg Take 1 Univers LE 500 mg 3-22 tablet by ity o f tablet 00:00: mouth 2 (two) Medical times Branch daily. Nitrofurant 2020-0 Yes [id number] 100mg Take 1 Univers oin&Nit. 3-22 capsule by ity o [place] (MACROB[place] 00 (two) Medical 100 mg times Branch capsule daily. metroNIDAZO 2020-0 Yes [id number] 500mg Take 1 Univers LE 500 mg 3-22 tablet by ity o f tablet 00:00: mouth 2 (two) Medical times Branch daily. Nitrofurant 2020-0 Yes [id number] 100mg Take 1 Univers oin&Nit. 3-22 capsule by ity o f [place] (MACROBID[place] 00 (two) Medical 100 mg times Branch capsule daily. metroNIDAZO 2020-0 Yes [id number] 500mg Take 1 Univers LE 500 mg 3-22 tablet by ity o f tablet 00:00: mouth 2 (two) Medical times Branch daily. Nitrofurant 2020-0 Yes [id number] 100mg Take 1 Univers oin&Nit. 3-22 capsule by ity o f [place]: [place] (MACROBID[place] 00 (two) Medical 100 mg times Branch capsule daily. metroNIDAZO 2020-0 Yes [id number] 500mg Take 1 Univers LE 500 mg 3-22 tablet by ity o f tablet 00:00: mouth 2 (two) Medical times Branch daily. Nitrofurant 2020-0 Yes [id number] 100mg Take 1 Univers oin&Nit. 3-22 capsule by ity o f [place]: mouth [place] (MACROBID[place] 00 (two) Medical 100 mg times Branch capsule daily. metroNIDAZO 2020-0 Yes [id number] 500mg Take 1 Univers LE 500 mg 3-22 tablet by ity o f tablet 00:00: mouth 2 (two) Medical times Branch daily. Nitrofurant 2020-0 Yes [id number] 100mg Take 1 Univers oin&Nit. 3-22 capsule by ity o f [place]: mouth [place] (MACROBID[place] 00 (two) Medical 100 mg times Branch capsule daily. metroNIDAZO Yes [id number] 500mg Take 1 Univers LE 500 mg 3-22 tablet by ity o f tablet 00:00: mouth 2 00 (two) Medical times Branch daily. Nitrofurant Yes [id number] 100mg Take 1 Univers oin&Nit. 3-22 capsule by ity o f [place]: mouth [place] (MACROBID[place] 00 (two) Medical 100 mg times Branch capsule daily. metroNIDAZO Yes [id number] 500mg Take 1 Univers LE 500 mg 3-22 tablet by ity o f tablet 00:00: mouth 2 [place] 00 (two) Medical times Branch daily. Nitrofurant Yes [id number] 100mg Take 1 Univers oin&Nit. 3-22 capsule by ity o f [place] 00:[place]: mouth [place] (MACROBID[place] 00 (two) Medical 100 mg times Branch capsule daily. metroNIDAZO Yes [id number] 500mg Take 1 Univers LE 500 mg 3-22 tablet by ity o f tablet 00:00: mouth 2 00 (two) Medical times Branch daily. Nitrofurant Yes [id number] 100mg Take 1 Univers oin&Nit. 3-22 capsule by ity o f [place] 00:[place]: mouth [place] (MACROBID[place] 00 (two) Medical 100 mg times Branch capsule daily. Nitrofurant Yes [id number] 100mg Take 1 Univers oin&Nit. 3-22 capsule by ity o f [place] 00:[place]: mouth [place] (MACROBID[place] 00 (two) Medical 100 mg times Branch capsule daily. metroNIDAZO Yes [id number] 500mg Take 1 Univers LE 500 mg 3-22 tablet by ity o f tablet 00:00: mouth 2 [place] 00 (two) Medical times Branch daily. fluconazole 2020- No [id number] 150mg Take 1 Univers (DIFLUCAN) 3-22 03-23 tablet by ity of 150 mg 00:00: 04:59 [place] tablet 00 :00 now for 1 Medical dose. Branch fluconazole 2020- No [id number] 150mg Take 1 Univers (DIFLUCAN) 3-22 03-23 tablet by ity of 150 mg 00:00: 04:59 [place] tablet 00 :00 now for 1 Medical dose. Branch ferrous 2015-06 Yes 325mg Take 1 Univers sulfate 325 1-19 tablet by ity of mg (65 mg 00:00: mouth 2 [place] iron) 00 (two) Medical tablet times Branch daily. ibuprofen 2015-06 Yes 600mg Take 1 Unive rs (MOTRIN) 1-19 tablet by ity of 600 mg 00:00: mouth [place] tablet 00 every 6 Medical (six) Branch hours as needed for Pain (scale 1-3) or Pain (scale 4-6). Take with food or milk. ferrous 2015-06 Yes 325mg Take 1 Univers sulfate 325 1-19 tablet by ity of mg (65 mg 00:00: mouth 2 [place] iron) 00 (two) Medical tablet times Branch daily. ibuprofen 2015-06 Yes 600mg Take 1 Unive rs (MOTRIN) 1-19 tablet by ity of 600 mg 00:00: mouth [place] tablet 00 every 6 Medical (six) Branch hours as needed for Pain (scale 1-3) or Pain (scale 4-6). Take with food or milk. ferrous 2015-06 Yes 325mg Take 1 Univers sulfate 325 1-19 tablet by ity of mg (65 mg 00:00: mouth 2 [place] iron) 00 (two) Medical tablet times Branch daily. ibuprofen 2015-06 Yes 600mg Take 1 Unive rs (MOTRIN) 1-19 tablet by ity of 600 mg 00:00: mouth [place] tablet 00 every 6 Medical (six) Branch hours as needed for Pain (scale 1-3) or Pain (scale 4-6). Take with food or milk. ferrous 2015-06 Yes 325mg Take 1 Univers sulfate 325 1-19 tablet by ity of mg (65 mg 00:00: mouth 2 [place] iron) 00 (two) Medical tablet times Branch daily. ibuprofen 2015-06 Yes 600mg Take 1 Unive rs (MOTRIN) 1-19 tablet by ity of 600 mg 00:00: mouth [place] tablet 00 every 6 Medical (six) Branch hours as needed for Pain (scale 1-3) or Pain (scale 4-6). Take with food or milk. ferrous 2015-06 Yes 325mg Take 1 Univers sulfate 325 1-19 tablet by ity of mg (65 mg 00:00: mouth 2 [place] iron) 00 (two) Medical tablet times Branch daily. ibuprofen 2015-06 Yes 600mg Take 1 Unive rs (MOTRIN) 1-19 tablet by ity of 600 mg 00:00: mouth [place] tablet 00 every 6 Medical (six) Branch hours as needed for Pain (scale 1-3) or Pain (scale 4-6). Take with food or milk. ferrous 2015-06 Yes 325mg Take 1 Univers sulfate 325 1-19 tablet by ity of mg (65 mg 00:00: mouth 2 [place] iron) 00 (two) Medical tablet times Branch daily. ibuprofen 2015-06 Yes 600mg Take 1 Unive rs (MOTRIN) 1-19 tablet by ity of 600 mg 00:00: mouth [place] tablet 00 every 6 Medical (six) Branch hours as needed for Pain (scale 1-3) or Pain (scale 4-6). Take with food or milk. ferrous 2015-06 Yes 325mg Take 1 Univers sulfate 325 1-19 tablet by ity of mg (65 mg 00:00: mouth 2 [place] iron) 00 (two) Medical tablet times Branch daily. ibuprofen 2015-06 Yes 600mg Take 1 Unive rs (MOTRIN) 1-19 tablet by ity of 600 mg 00:00: mouth [place] tablet 00 every 6 Medical (six) Branch hours as needed for Pain (scale 1-3) or Pain (scale 4-6). Take with food or milk. ferrous 2015-06 Yes 325mg Take 1 Univers sulfate 325 1-19 tablet by ity of mg (65 mg 00:00: mouth 2 [place] iron) 00 (two) Medical tablet times Branch daily. ibuprofen 2015-06 Yes 600mg Take 1 Unive rs (MOTRIN) 1-19 tablet by ity of 600 mg 00:00: mouth [place] tablet 00 every 6 Medical (six) Branch hours as needed for Pain (scale 1-3) or Pain (scale 4-6). Take with food or milk. ferrous 2015-06 Yes 325mg Take 1 Univers sulfate 325 1-19 tablet by ity of mg (65 mg 00:00: mouth 2 [place] iron) 00 (two) Medical tablet times Branch daily. ibuprofen 2015-06 Yes 600mg Take 1 Unive rs (MOTRIN) 1-19 tablet by ity of 600 mg 00:00: mouth [place] tablet 00 every 6 Medical (six) Branch hours as needed for Pain (scale 1-3) or Pain (scale 4-6). Take with food or milk. ferrous 2015-06 Yes 325mg Take 1 Univers sulfate 325 1-19 tablet by ity of mg (65 mg 00:00: mouth 2 [place] iron) 00 (two) Medical tablet times Branch daily. ibuprofen 2015-06 Yes 600mg Take 1 Unive rs (MOTRIN) 1-19 tablet by ity of 600 mg 00:00: mouth [place] tablet 00 every 6 Medical (six) Branch hours as needed for Pain (scale 1-3) or Pain (scale 4-6). Take with food or milk. ferrous 2015-06 Yes 325mg Take 1 Univers sulfate 325 1-19 tablet by ity of mg (65 mg 00:00: mouth 2 [place] iron) 00 (two) Medical tablet times Branch daily. ibuprofen 2015-06 Yes 600mg Take 1 Unive rs (MOTRIN) 1-19 tablet by ity of 600 mg 00:00: mouth [place] tablet 00 every 6 Medical (six) Branch hours as needed for Pain (scale 1-3) or Pain (scale 4-6). Take with food or milk. ferrous 2015-06 Yes 325mg Take 1 Univers sulfate 325 1-19 tablet by ity of mg (65 mg 00:00: mouth 2 [place] iron) 00 (two) Medical tablet times Branch daily. ibuprofen 2015-06 Yes 600mg Take 1 Unive rs (MOTRIN) 1-19 tablet by ity of 600 mg 00:00: mouth [place] tablet 00 every 6 Medical (six) Branch hours as needed for Pain (scale 1-3) or Pain (scale 4-6). Take with food or milk. ferrous 2015-06 Yes 325mg Take 1 Univers sulfate 325 1-19 tablet by ity of mg (65 mg 00:00: mouth 2 [place] iron) 00 (two) Medical tablet times Branch daily. ibuprofen 2015-06 Yes 600mg Take 1 Unive rs (MOTRIN) 1-19 tablet by ity of 600 mg 00:00: mouth [place] tablet 00 every 6 Medical (six) Branch hours as needed for Pain (scale 1-3) or Pain (scale 4-6). Take with food or milk. ferrous 2015-06 Yes 325mg Take 1 Univers sulfate 325 1-19 tablet by ity of mg (65 mg 00:00: mouth 2 [place] iron) 00 (two) Medical tablet times Branch daily. ibuprofen 2016- Yes 600mg Take 1 Unive rs (MOTRIN) 1-19 tablet by ity of 600 mg 00:00: mouth [place] tablet 00 every 6 Medical (six) Branch hours as needed for Pain (scale 1-3) or Pain (scale 4-6). Take with food or milk. PNV without 2016-0 Yes [id number] 1{each} Take 1 Univers Ca-Iron 5-11 Each by ity of PsCmplx-FA 00:00: mouth [place] (SELECT-OB, 00 daily. Medica l FOLIC Branch ACID,) 29-1 mg Chew PNV without 2016-0 Yes [id number] 1{each} Take 1 Univers Ca-Iron 5-11 Each by ity of PsCmplx-FA 00:00: mouth [place] (SELECT-OB, 00 daily. Medica l FOLIC Branch ACID,) 29-1 mg Chew PNV without 2016-0 Yes [id number] 1{each} Take 1 Univers Ca-Iron 5-11 Each by ity of PsCmplx-FA 00:00: mouth [place] (SELECT-OB, 00 daily. Medica l FOLIC Branch ACID,) 29-1 mg Chew PNV without 2016-0 Yes [id number] 1{each} Take 1 Univers Ca-Iron 5-11 Each by ity of PsCmplx-FA 00:00: mouth [place] (SELECT-OB, 00 daily. Medica l FOLIC Branch ACID,) 29-1 mg Chew PNV without 2016-0 Yes [id number] 1{each} Take 1 Univers Ca-Iron 5-11 Each by ity of PsCmplx-FA 00:00: mouth [place] (SELECT-OB, 00 daily. Medica l FOLIC Branch ACID,) 29-1 mg Chew PNV without 2016-0 Yes [id number] 1{each} Take 1 Univers Ca-Iron 5-11 Each by ity of PsCmplx-FA 00:00: mouth [place] (SELECT-OB, 00 daily. Medica l FOLIC Branch ACID,) 29-1 mg Chew PNV without 2016-0 Yes [id number] 1{each} Take 1 Univers Ca-Iron 5-11 Each by ity of PsCmplx-FA 00:00: mouth [place] (SELECT-OB, 00 daily. Medica l FOLIC Branch ACID,) 29-1 mg Chew PNV without 2016-0 Yes [id number] 1{each} Take 1 Univers Ca-Iron 5-11 Each by ity of PsCmplx-FA 00:00: mouth [place] (SELECT-OB, 00 daily. Medica l FOLIC Branch ACID,) 29-1 mg Chew PNV without 2016-0 Yes [id number] 1{each} Take 1 Univers Ca-Iron 5-11 Each by ity of PsCmplx-FA 00:00: mouth [place] (SELECT-OB, 00 daily. Medica l FOLIC Branch ACID,) 29-1 mg Chew PNV without 2016-0 Yes [id number] 1{each} Take 1 Univers Ca-Iron 5-11 Each by ity of PsCmplx-FA 00:00: mouth [place] (SELECT-OB, 00 daily. Medica l FOLIC Branch ACID,) 29-1 mg Chew PNV without 2016-0 Yes [id number] 1{each} Take 1 Univers Ca-Iron 5-11 Each by ity of PsCmplx-FA 00:00: mouth [place] (SELECT-OB, 00 daily. Medica l FOLIC Branch ACID,) 29-1 mg Chew PNV without 2016-0 Yes [id number] 1{each} Take 1 Univers Ca-Iron 5-11 Each by ity of PsCmplx-FA 00:00: mouth [place] (SELECT-OB, 00 daily. Medica l FOLIC Branch ACID,) 29-1 mg Chew PNV without 2016-0 Yes [id number] 1{each} Take 1 Univers Ca-Iron 5-11 Each by ity of PsCmplx-FA 00:00: mouth [place] (SELECT-OB, 00 daily. Medica l FOLIC Branch ACID,) 29-1 mg Chew PNV without 2016-0 Yes [id number] 1{each} Take 1 Univers Ca-Iron 5-11 Each by ity of PsCmplx-FA 00:00: mouth [place] (SELECT-OB, 00 daily. Medica l FOLIC Branch ACID,) 29-1 mg Chew Immunizations Ordered Filled Immunization Date Status Comments [facility] e Immunization Name Name TDAP 2016-03-26 Completed University of 00:00:00 [facility] Influenza Virus 2016-03-26 Completed Universit y of Vaccine Quad IM 3+ 00:00:00 [facility] TDAP 2016-03-26 Completed University of 00:00:00 [facility] Influenza Virus 2016-03-26 Completed Universit y of Vaccine Quad IM 3+ 00:00:00 [facility] TDAP 2016-03-26 Completed University of 00:00:00 [facility] Influenza Virus 2016-03-26 Completed Universit y of Vaccine Quad IM 3+ 00:00:00 [facility] TDAP 2016-03-26 Completed University of 00:00:00 [facility] Influenza Virus 2016-03-26 Completed Universit y of Vaccine Quad IM 3+ 00:00:00 [facility] TDAP 2016-03-26 Completed University of 00:00:00 [facility] Influenza Virus 2016-03-26 Completed Universit y of Vaccine Quad IM 3+ 00:00:00 [facility] TDAP 2016-03-26 Completed University of 00:00:00 [facility] Influenza Virus 2016-03-26 Completed Universit y of Vaccine Quad IM 3+ 00:00:00 [facility] TDAP 2016-03-26 Completed University of 00:00:00 [facility] Influenza Virus 2016-03-26 Completed Universit y of Vaccine Quad IM 3+ 00:00:00 [facility] TDAP 2016-03-26 Completed University of 00:00:00 [facility] Influenza Virus 2016-03-26 Completed Universit y of Vaccine Quad IM 3+ 00:00:00 [facility] TDAP 2016-03-26 Completed University of 00:00:00 [facility] Influenza Virus 2016-03-26 Completed Universit y of Vaccine Quad IM 3+ 00:00:00 [facility] TDAP 2016-03-26 Completed University of 00:00:00 [facility] Influenza Virus 2016-03-26 Completed Universit y of Vaccine Quad IM 3+ 00:00:00 [facility] TDAP 2016-03-26 Completed University of 00:00:00 [facility] Influenza Virus 2016-03-26 Completed Universit y of Vaccine Quad IM 3+ 00:00:00 [facility] TDAP 2016-03-26 Completed University of 00:00:00 [facility] Influenza Virus 2016-03-26 Completed Universit y of Vaccine Quad IM 3+ 00:00:00 [facility] TDAP 2016-03-26 Completed University of 00:00:00 [facility] Influenza Virus 2016-03-26 Completed Universit y of Vaccine Quad IM 3+ 00:00:00 [facility] TDAP 2016-03-26 Completed University of 00:00:00 [facility] Influenza Virus 2016-03-26 Completed Universit y of Vaccine Quad IM 3+ 00:00:00 [facility] Influenza Virus 2015-10-31 Completed Universit y of Vaccine Quad IM 3+ 00:00:00 [facility] Influenza Virus 2015-10-31 Completed Universit y of Vaccine Quad IM 3+ 00:00:00 [facility] Influenza Virus 2015-10-31 Completed Universit y of Vaccine Quad IM 3+ 00:00:00 [facility] Influenza Virus 2015-10-31 Completed Universit y of Vaccine Quad IM 3+ 00:00:00 [facility] Influenza Virus 2015-10-31 Completed Universit y of Vaccine Quad IM 3+ 00:00:00 [facility] Influenza Virus 2015-10-31 Completed Universit y of Vaccine Quad IM 3+ 00:00:00 [facility] Influenza Virus 2015-10-31 Completed Universit y of Vaccine Quad IM 3+ 00:00:00 [facility] Influenza Virus 2015-10-31 Completed Universit y of Vaccine Quad IM 3+ 00:00:00 [facility] Influenza Virus 2015-10-31 Completed Universit y of Vaccine Quad IM 3+ 00:00:00 [facility] Influenza Virus 2015-10-31 Completed Universit y of Vaccine Quad IM 3+ 00:00:00 [facility] Influenza Virus 2015-10-31 Completed Universit y of Vaccine Quad IM 3+ 00:00:00 [facility] Influenza Virus 2015-10-31 Completed Universit y of Vaccine Quad IM 3+ 00:00:00 [facility] Influenza Virus 2015-10-31 Completed Universit y of Vaccine Quad IM 3+ 00:00:00 [facility] Influenza Virus 2015-10-31 Completed Universit y of Vaccine Quad IM 3+ 00:00:00 [facility] Vital Signs Vital Name Observation Time Observation Value Comments Source Systolic blood 2020-09-06 16:14:00 136 mm[Hg] Univer sity of pressure [facility] Diastolic blood 2020-09-06 16:14:00 94 mm[Hg] Unive rsity of pressure [facility] Heart rate 2020-09-06 15:11:00 102 /min [facility] Body temperature 2020-09-06 15:11:00 36.78 [facility] 2020-09-06 15:11:00 16 /min [facility] Body height 2020-09-06 15:11:00 162.6 cm [facility] Body weight 2020-09-06 15:11:00 76.8 kg [facility] BMI 2020-09-06 15:11:00 29.06 kg/m2 [facility] Procedures Procedure Date / Time Performed Performing Clinician Sour e ASSIGNMENT OF BENEFITS 2020-09-06 14:57:36 Doctor Unassigned, No [facility] Encounters Start End Encounter Admission Attending Care Care Encounter Source Date/Time Date/Time Type Type Clinicians Facility Department ID 2021-02-20 2021-02-20 Outpatient R DARREN, [facility] [id number] Univers 16:00:00 16:00:00 VICKIE [id number] malik archer [facility] 2021-02-20 2021-02-20 Outpatient R DARREN, [facility] [id number] Univers 16:00:00 16:00:00 VCIKIE archer [facility] 2021-02-14 2021-02-14 [facility] [id number] Univers 00:00:00 00:00:00 Vickie Overton SITE TECHNICIAN [id number] ity of [facility] [id number] Nirav as MATERNAL [phone] Med [facility] & CHILD [address] [place] [address] 2020-09-17 2020-09-17 [facility] [id number] Univers 00:00:00 00:00:00 Vickie Overton SITE TECHNICIAN [id number] ity of REGIONAL [id number] Nirav as MATERNAL [phone] [facility] & CHILD [address] [place] [address] 2020-09-12 2020-09-12 [facility] [id number] Univers 00:00:00 00:00:00 Vickie C SITE TECHNICIAN [id number] ity of [facility] [id number] Nirav as MATERNAL [id number] [facility] & [address] 2020-09-10 2020-09-10 Telephone [facility] [id number] Univers 00:00:00 00:00:00 Vickie C SITE TECHNICIAN [id number] ity of [facility] [id number] Nirav as MATERNAL [id number] [address] 2020-09-10 2020-09-10 Telephone [facility] [id number] Univers 00:00:00 00:00:00 Vickie C SITE TECHNICIAN [id number] ity of [place] [id number] Nirav as MATERNAL [phone] [address] 2020-09-06 2020-09-06 Office [facility] [id number] Univers 10:00:50 11:15:07 Visit Vickie Overton SITE TECHNICIAN [id number] ity of [facility] [id number] Nirav as MATERNAL [id number] [address] 2020-09-06 2020-09-[address] [facility] [id number] Univers 10:00:00 10:00:00 VICKIE [id number] williey o f [facility] 2020-09-06 2020-09-06 [facility] [id number] Univers 10:00:00 10:00:00 VICKIE gan o f [facility] 2020-09-06 2020-09-06 Orders Doctor INTERIANO [id number] Univers 00:00:00 00:00:00 Only Unassigned, MAURISIO [id number] ity of [employer] [facility] [id number] Nirav as [phone] [place] [address] Branch 2020-09-03 2020-09-03 Telephone Pcp, [facility] [id number] Univers 00:00:00 00:00:00 Patient SITE TECHNICIAN [id number] it y of Does Not [id number] MATERNAL [id number] Med ical & CHILD [address] [place] [address] 2020-07-05 2020-07-05 [id number] Univers 08:00:00 08:00:00 [facility] [id number] [facility] 2020-07-[facility] 2020-07-05 Outpatient R JAROD [facility] [id number] Univers 08:00:00 08:00:00 JOAO gan [facility] 2020-06-08 2020-06-08 Outpatient R DARREN [facility] [id number] Univers 08:30:00 08:30:00 [facility] [id number] [facility] 2020-06-08 2020-06-08 Outpatient R DARREN [facility] [id number] Univers 08:30:00 08:30:00 VICKIE [facility] Results This patient has no known results.
--- NOTE | 2021-05-21 19:06 | ER ---
Nurse's Notes [facility] Name: Barbie Antoine Age: 36 yrs Sex: Female : 1985 Arrival Date: 05/21/2021 Time: 14:36 Bed 9 Private MD: Diagnosis: Dental caries, unspecified-broken tooth Presentation: 05/21 15:22 Chief complaint: Patient states: Tooth pain began really bad last night. Pt broke ld1 bottom left wisdom tooth. Coronavirus screen: At this time, the client does not indicate any symptoms associated with coronavirus-19. Ebola Screen: No symptoms or risks identified at this time. Initial Sepsis Screen: Does the patient meet any 2 criteria? No. Patient's initial sepsis screen is negative. Does the patient have a suspected source of infection? No. Patient's initial sepsis screen is negative. Risk Assessment: Do you want to hurt yourself or someone else? Patient reports no desire to harm self or others. Onset of symptoms was May 21, 2021. 15:22 Method Of Arrival: Ambulatory ld1 15:22 Acuity: AMY 4 ld1 Triage Assessment: 15:23 General: Appears in no apparent distress. comfortable, Behavior is calm, cooperative, ld1 appropriate for age. Pain: Complains of pain in lower right third molar Pain does not radiate. Pain currently is 7 out of 10 on a pain scale. Quality of pain is described as throbbing, Pain began 2-3 days ago. Is continuous. EENT: No signs and/or symptoms were reported regarding the EENT system. Reports pain in lower right third molar. Neuro: Level of Consciousness is awake, alert, obeys commands, Oriented to person, place, time, situation, Appropriate for age. Cardiovascular: Capillary refill < 3 seconds Patient's skin is warm and dry. Respiratory: Airway is patent Respiratory effort is even, unlabored, Respiratory pattern is regular, symmetrical. 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 - Social history:: Smoking status: Patient denies any tobacco usage or history of. Patient/guardian denies using alcohol, street drugs. - Family history:: not pertinent. Screenin:00 Abuse screen: Denies threats or abuse. Nutritional screening: No deficits noted. cc4 Tuberculosis screening: No symptoms or risk factors identified. Fall Risk None identified. Assessment: 19:00 General: Appears uncomfortable, Behavior is calm, cooperative. General: Medications cc4 given as ordered.. Pain: Complains of pain in lower right third molar (#32) and face Pain radiates to face Pain currently is 10 out of 10 on a pain scale. Quality of pain is described as aching. Neuro: No deficits noted. Level of Consciousness is awake, alert, obeys commands, Oriented to person, place, time, situation. Respiratory: No deficits noted. Airway is patent Respiratory effort is even, unlabored, Respiratory pattern is regular, symmetrical. GI: No signs and/or symptoms were reported involving the gastrointestinal system. GI: No signs and/or symptoms were reported involving the gastrointestinal system. : No signs and/or symptoms were reported regarding the genitourinary system. EENT: No signs and/or symptoms were reported regarding the EENT system. Derm: No signs and/or symptoms reported regarding the dermatologic system. Musculoskeletal: No signs and/or symptoms reported regarding the musculoskeletal system. Vital Signs: 15:22 BP 161 / 108; Pulse 75; Resp 18; Temp 98.1(TE); Pulse Ox 99% on R/A; Weight 78.02 kg; ld1 Height 5 ft. 5 in. (165.10 cm); Pain 7/10; 19:45 BP 132 / 87; Pulse 68; Resp 20 S; Temp 98.2(O); Pulse Ox 100% on R/A; cc4 15:22 Body Mass Index 28.62 (78.02 kg, 165.10 cm) ld1 ED Course: 14:36 Patient arrived in ED. am2 15:23 Triage completed. ld1 15:23 Arm band placed on right wrist. ld1 18:47 Ramos Freedman MD is Attending Physician. dionicio 19:00 Patient has correct armband on for positive identification. Call light in reach. cc4 sitting in chair. 19:04 Ruiz Chavez DDS is Referral Physician. [facility] 19:45 No provider procedures requiring assistance completed. cc4 19:45 Patient did not have IV access during this emergency room visit. cc4 19:59 Shanti Howe, RN is Primary Nurse. cc4 Administered Medications: 19:40 Drug: Amoxicillin 500 mg Route: PO; cc4 19:45 Follow up: Response: No adverse reaction cc4 19:40 Drug: [place] (HYDROcodone-acetaminophen) 10 mg-325 mg 1 tabs Route: PO; cc4 19:45 Follow up: Response: No adverse reaction; Pain is decreased cc4 Outcome: 19:05 Discharge ordered by . [facility] 19:45 Discharged to home cc4 19:45 Condition: stable 19:45 Discharge instructions given to patient, Instructed on discharge instructions, follow up and referral plans. medication usage, Demonstrated understanding of instructions, follow-up care, medications, Prescriptions given X 2. 20:00 Patient left the ED. cc4 Signatures: Ramos Freedman MD MD cha Moreno, Amanda am2 Nicolasa Harper RN RN ld1 Shanti Howe, DIONE RN cc4
--- NOTE | 2021-05-21 19:06 | EDPHYS ---
Physician Documentation [facility] Name: Barbie Antoine Age: 36 yrs Sex: Female : 1985 Arrival Date: 05/21/2021 Time: 14:36 Bed 9 Private MD: ED Physician Ramos Freedman HPI: 05/21 19:00 This 36 yrs old Female presents to ER via Ambulatory with complaints of dionicio Toothache. 19:00 The patient presents with broken tooth/teeth, pain, redness, swelling. The problem is dionicio located in the lower right third molar. Onset: The symptoms/episode began/occurred 2 day(s) ago. Duration: The symptoms are continuous, and are steadily getting worse. Modifying factors: The symptoms are alleviated by nothing, the symptoms are aggravated by chewing, cold fluids. Severity of symptoms: At their worst the symptoms were moderate, in the emergency department the symptoms are unchanged. The patient has not experienced similar symptoms in the past. 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 - Social history:: Smoking status: Patient denies any tobacco usage or history of. Patient/guardian denies using alcohol, street drugs. - Family history:: not pertinent. ROS: 19:00 Constitutional: Negative for fever, chills, and weight loss, Eyes: Negative for injury, dionicio pain, redness, and discharge, Neck: Negative for injury, pain, and swelling, Cardiovascular: Negative for chest pain, palpitations, and edema, Respiratory: Negative for shortness of breath, cough, wheezing, and pleuritic chest pain, Abdomen/GI: Negative for abdominal pain, nausea, vomiting, diarrhea, and constipation, Back: Negative for injury and pain, MS/Extremity: Negative for injury and deformity, Skin: Negative for injury, rash, and discoloration, Neuro: Negative for headache, weakness, numbness, tingling, and seizure, Psych: Negative for depression, anxiety, suicide ideation, homicidal ideation, and hallucinations, Allergy/Immunology: Negative for hives, rash, and allergies, Endocrine: Negative for neck swelling, polydipsia, polyuria, polyphagia, and marked weight changes, Hematologic/Lymphatic: Negative for swollen nodes, abnormal bleeding, and unusual bruising. 19:00 ENT: Positive for Teeth pain Exam: 19:00 Constitutional: This is a well developed, well nourished patient who is awake, alert, dionicio and in no acute distress. Head/Face: Normocephalic, atraumatic. Eyes: Pupils equal round and reactive to light, extra-ocular motions intact. Lids and lashes normal. Conjunctiva and sclera are non-icteric and not injected. Cornea within normal limits. Periorbital areas with no swelling, redness, or edema. Neck: Trachea midline, no thyromegaly or masses palpated, and no cervical lymphadenopathy. Supple, full range of motion without nuchal rigidity, or vertebral point tenderness. No Meningismus. Chest/axilla: Normal chest wall appearance and motion. Nontender with no deformity. No lesions are appreciated. Cardiovascular: Regular rate and rhythm with a normal S1 and S2. No gallops, murmurs, or rubs. Normal PMI, no JVD. No pulse deficits. Respiratory: Lungs have equal breath sounds bilaterally, clear to auscultation and percussion. No rales, rhonchi or wheezes noted. No increased work of breathing, no retractions or nasal flaring. Abdomen/GI: Soft, non-tender, with normal bowel sounds. No distension or tympany. No guarding or rebound. No evidence of tenderness throughout. Back: No spinal tenderness. No costovertebral tenderness. Full range of motion. Skin: Warm, dry with normal turgor. Normal color with no rashes, no lesions, and no evidence of cellulitis. MS/ Extremity: Pulses equal, no cyanosis. Neurovascular intact. Full, normal range of motion. Neuro: Awake and alert, GCS 15, oriented to person, place, time, and situation. Cranial nerves II-XII grossly intact. Motor strength 5/5 in all extremities. Sensory grossly intact. Cerebellar exam normal. Normal gait. Psych: Awake, alert, with orientation to person, place and time. Behavior, mood, and affect are within normal limits. 19:00 ENT: Dental exam: dental caries, that is mild, fractured teeth are noted, specifically the lower right third molar (#32). Vital Signs: 15:22 BP 161 / 108; Pulse 75; Resp 18; Temp 98.1(TE); Pulse Ox 99% on R/A; Weight 78.02 kg; ld1 Height 5 ft. 5 in. (165.10 cm); Pain 7/10; 19:45 BP 132 / 87; Pulse 68; Resp 20 S; Temp 98.2(O); Pulse Ox 100% on R/A; cc4 15:22 Body Mass Index 28.62 (78.02 kg, 165.10 cm) ld1 MDM: 18:47 Patient medically screened. dionicio 19:03 Differential diagnosis: dental caries, gingivitis, dental abscess. Data reviewed: vital dionicio signs, nurses notes. 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 Counseling: I had a detailed discussion with the patient and/or guardian regarding: the historical points, exam findings, and any diagnostic results supporting the discharge/admit diagnosis, the need for outpatient follow up, for definitive care, a dentist, an oral maxilofacial specialist. Administered Medications: 19:40 Drug: Amoxicillin 500 mg Route: PO; cc4 19:45 Follow up: Response: No adverse reaction cc4 19:40 Drug: [place] (HYDROcodone-acetaminophen) 10 mg-325 mg 1 tabs Route: PO; cc4 19:45 Follow up: Response: No adverse reaction; Pain is decreased cc4 Disposition Summary: 05/21/21 19:05 Discharge Ordered Location: Home dionicio Problem: new dionicio Symptoms: have improved dionicio Condition: Stable dionicio Diagnosis - Dental caries, unspecified - broken tooth dionicio Followup: dionicio - With: Private Physician - When: 2 - 3 days - Reason: Recheck today's complaints, Continuance of care, Re-evaluation by your physician Followup: dionicio - With: Ruiz Chavez DDS - When: 2 - 3 days - Reason: Recheck today's complaints, Continuance of care, Re-evaluation by your physician Discharge Instructions: - Discharge Summary Sheet dionicio - Dental Caries, Adult dionicio - Dental Pain dionicio - Dental Pain, Sbko-ho-Luck dionicio - Diet and Dental Disease dionicio Forms: - Medication Reconciliation Form dionicio - Thank You Letter dionicio - Antibiotic Education [facility] - Prescription Opioid Use [facility] Prescriptions: - Amoxicillin 500 mg Oral Capsule - take 1 capsule by ORAL route every 8 hours for 10 days; 30 tablet; Refills: 0, [facility] Product Selection Permitted - Tylenol-Codeine #3 300 mg-30 mg Oral - take 2 tablet by ORAL route every 4-6 hours; 15 tablet; Refills: 0, Product [facility] Selection Permitted Signatures: Ramos Freedman MD MD cha Dibbern, Lauren RN RN ld1 Shanti Howe RN RN cc4
[2021-05-21] MEDS ORDERED: HYDROCODONE/APAP 10/325 TAB ONE (19:42)
[2021-05-21] MEDS ORDERED: AMOXICILLIN TRIHYDR 250 MG CAP ONE (19:43)
[2021-05-21 20:19] VITALS: BP 161/108; TEMP 98.1; O2SAT 99
== END 2021-05-21 20:00 | disposition home or self-care (01) ==
LOC: ER 14:33
DX: K02.9 Dental caries, unspecified (principal)
CPT/HCPCS: 99283

== ENCOUNTER 2021-05-23 21:44 | Emergency (ER) | payer SELFPAY ==
--- OUTSIDE RECORDS SUMMARY | 2021-05-23 21:48 | XMS REPORT | Continuity of Care Document ---
:1985 Author Organization [facility] t Address [address] [place] [address] Care Team Providers Name Role Phone Pcp, [...] Disease Active Univers 1-05 ity of 00:00: [place] 00 [facility] Allergies, Adverse Reactions, Alerts Allergy Allergy Status Severity Reaction(s) Onset Inactive Treating Comm ents Source Name Type Date Date Clinician NO KNOWN Drug Active Univers ALLERGIE Class ity of S [facility] Social History Social Habit Start Date Stop Date Quantity Comments Source Exposure to Not sure [facility] SARS-CoV-2 [facility] (event) [place] Tobacco use and 2020-09-06 2020-09-06 Never used Universit y of exposure 00:00:00 00:00:00 [facility] Alcohol intake 2020-09-06 2020-09-06 Current drinker Unive rsity of 00:00:00 00:00:00 of alcohol [facility] (finding) [place] Alcohol Comment 2020-09-06 2020-09-06 Socially Universit y of 00:00:00 00:00:00 [facility] Sex Assigned At [birth year] Universit y of 00:00:00 00:00:00 [facility] Smoking Status Start Date Stop Date Source Never smoker [facility] Medications Ordered Filled Start Stop Current Ordering Indication Dosage Frequency Signature Comments Components Source Medication Medication Date Date Medication? Clinician (SIG) Name Name metroNIDAZO 2020- No [id number] 2000mg Take 4 Univers LE 500 mg 3-29 03-30 tablets by [place] tablet 00:00[place] 04[place] 1 Medical dose. Branch metroNIDAZO 2020- No [id number] 2000mg Take 4 Univers LE 500 mg 3-29 03-30 tablets by ity of tablet 00:00[place] 04[place] now for 1 Medical dose. Branch metroNIDAZO 2020- No [id number] 2000mg Take 4 Univers LE 500 mg 3-29 03-30 tablets by [place]y of tablet 00:00: 04:59 [place] now for 1 Medical dose. Branch Nitrofurant Yes [id number] 100mg Take 1 Univers oin&Nit. 3-22 capsule by ity o [place] (MACROBID[place] 00 (two) Medical 100 mg times Branch capsule daily. metroNIDAZO Yes [id number] 500mg Take 1 Univers LE 500 mg 3-22 tablet by ity o f tablet 00:00: mouth 2 (two) Medical times Branch daily. Nitrofurant 2020-0 Yes [id number] 100mg Take 1 Univers oin&Nit. 3-22 capsule by ity o [place] (MACROBID[place] 00 (two) Medical 100 mg times Branch capsule daily. metroNIDAZO 2020-0 Yes [id number] 500mg Take 1 Univers LE 500 mg 3-22 tablet by ity o f tablet 00:00: mouth 2 (two) Medical times Branch daily. Nitrofurant 2020-0 Yes [id number] 100mg Take 1 Univers oin&Nit. 3-22 capsule by ity o [place] (MACROBID[place] 00 (two) Medical 100 mg times Branch capsule daily. metroNIDAZO 0 Yes [id number] 500mg Take 1 Univers LE 500 mg 3-22 tablet by ity o f tablet 00:00: mouth 2 (two) Medical times Branch daily. Nitrofurant 2020-0 Yes [id number] 100mg Take 1 Univers oin&Nit. 3-22 capsule by ity o [place] (MACROBID[place] 00 (two) Medical 100 mg times Branch capsule daily. metroNIDAZO 0 Yes [id number] 500mg Take 1 Univers LE 500 mg 3-22 tablet by ity o f tablet 00:00: mouth 2 (two) Medical times Branch daily. Nitrofurant 2020-0 Yes [id number] 100mg Take 1 Univers oin&Nit. 3-22 capsule by ity o f [place] (MACROBID[place] 00 (two) Medical 100 mg times Branch capsule daily. metroNIDAZO 2020-0 Yes [id number] 500mg Take 1 Univers LE 500 mg 3-22 tablet by ity o f tablet 00:00: mouth 2 (two) Medical times Branch daily. Nitrofurant 2020-0 Yes [id number] 100mg Take 1 Univers oin&Nit. 3-22 capsule by ity o f [place] (MACROBID[place] 00 (two) Medical 100 mg times Branch capsule daily. metroNIDAZO Yes [id number] 500mg Take 1 Univers LE 500 mg 3-22 tablet by ity o f tablet 00:00: mouth 2 [place] 00 (two) Medical times Branch daily. Nitrofurant Yes [id number] 100mg Take 1 Univers oin&Nit. 3-22 capsule by ity o f [place] (MACROBID[place] 00 (two) Medical 100 mg times Branch capsule daily. metroNIDAZO Yes [id number] 500mg Take 1 Univers LE 500 mg 3-22 tablet by ity o f tablet 00:00: mouth 2 [place] 00 (two) Medical times Branch daily. Nitrofurant Yes [id number] 100mg Take 1 Univers oin&Nit. 3-22 capsule by ity o f [place]: mouth [place] (MACROBID[place] 00 (two) Medical 100 mg times Branch capsule daily. metroNIDAZO Yes [id number] 500mg Take 1 Univers LE 500 mg 3-22 tablet by ity o f tablet 00:00: mouth 2 00 (two) Medical times Branch daily. Nitrofurant Yes [id number] 100mg Take 1 Univers oin&Nit. 3-22 capsule by ity o f [place]: mouth [place] (MACROBID) 00 (two) Medical 100 mg times Branch capsule daily. Nitrofurant Yes [id number] 100mg Take 1 Univers oin&Nit. 3-22 capsule by ity o f [place]: mouth [place] (MACROBID[place] 00 (two) Medical 100 mg times Branch capsule daily. metroNIDAZO Yes [id number] 500mg Take 1 Univers LE 500 mg 3-22 tablet by ity o f tablet 00:00: mouth 2 [place] 00 (two) Medical times Branch daily. fluconazole 2020- No [id number] 150mg Take 1 Univers (DIFLUCAN) 3-22 03-23 tablet by ity of 150 mg 00:00: 04:59 [place] tablet 00 :00 now for 1 Medical dose. Branch fluconazole 2020- No [id number] 150mg Take 1 Univers (DIFLUCAN) 3-22 03-23 [...] food or milk. PNV without 2016-0 Yes [id number] 1{each} Take 1 Univers Ca-Iron 5-11 Each by ity of PsCmplx-FA 00:00: mouth [place] (SELECT-OB, 00 daily. Medica l FOLIC Branch ACID,) 29-1 mg Chew PNV without 2016-0 Yes [id number] 1{each} Take 1 Univers Ca-Iron 5-11 Each by ity of PsCmplx-FA 00:00: mouth [place] (SELECT-OB, 00 daily. Medica l FOLIC Branch ACID,) 29-1 mg Chew PNV without 2016-0 Yes [id number] 1{each} Take 1 Univers Ca-Iron 5-11 Each by ity of PsCmplx-FA 00:00: mouth [place] (SELECT-OB, 00 daily. Medica l FOLIC Branch ACID,) 29-1 mg Chew PNV without 2016-0 Yes [id number] 1{each} Take 1 Univers Ca-Iron 5-11 Each by ity of PsCmplx-FA 00:00: mouth [place] (SELECT-OB, 00 daily. Medica l FOLIC Branch ACID,) 29-1 mg Chew PNV without 2016-0 Yes [id number] 1{each} Take 1 Univers Ca-Iron 5-11 Each by ity of PsCmplx-FA 00:00: mouth [place] (SELECT-OB, 00 daily. Medica l FOLIC Branch ACID,) 29-1 mg Chew PNV without 2016-0 Yes [id number] 1{each} Take 1 Univers Ca-Iron 5-11 Each by ity of PsCmplx-FA 00:00: mouth [place] (SELECT-OB, 00 daily. Medica l FOLIC Branch ACID,) 29-1 mg Chew PNV without 2016-0 Yes [id number] 1{each} Take 1 Univers Ca-Iron 5-11 Each by ity of PsCmplx-FA 00:00: mouth [place] (SELECT-OB, 00 daily. Medica l FOLIC Branch ACID,) 29-1 mg Chew PNV without 2016-0 Yes [id number] 1{each} Take 1 Univers Ca-Iron 5-11 Each by ity of PsCmplx-FA 00:00: mouth [place] (SELECT-OB, 00 daily. Medica l FOLIC Branch ACID,) 29-1 mg Chew PNV without 2016-0 Yes [id number] 1{each} Take 1 Univers Ca-Iron 5-11 Each by ity of PsCmplx-FA 00:00: mouth [place] (SELECT-OB, 00 daily. Medica l FOLIC Branch ACID,) 29-1 mg Chew PNV without 2016-0 Yes [id number] 1{each} Take 1 Univers Ca-Iron 5-11 Each by ity of PsCmplx-FA 00:00: mouth [place] (SELECT-OB, 00 daily. Medica l FOLIC Branch ACID,) 29-1 mg Chew PNV without 2016-0 Yes [id number] 1{each} Take 1 Univers Ca-Iron 5-11 Each by ity of PsCmplx-FA 00:00: mouth [place] (SELECT-OB, 00 daily. Medica l FOLIC Branch ACID,) 29-1 mg Chew PNV without 2016-0 Yes [id number] 1{each} Take 1 Univers Ca-Iron 5-11 Each by ity of PsCmplx-FA 00:00: mouth [place] (SELECT-OB, 00 daily. Medica l FOLIC Branch ACID,) 29-1 mg Chew PNV without 2016-0 Yes [id number] 1{each} Take 1 Univers Ca-Iron 5-11 Each by ity of PsCmplx-FA 00:00: mouth [place] (SELECT-OB, 00 daily. Medica l FOLIC Branch ACID,) 29-1 mg Chew PNV without 2016-0 Yes [id number] 1{each} Take 1 Univers Ca-Iron 5-11 Each by ity of PsCmplx-FA 00:00: mouth [place] (SELECT-OB, 00 daily. Medica l FOLIC Branch ACID,) 29-1 mg Chew Immunizations Ordered Filled Immunization Date Status Comments [facility] e Immunization Name Name TDAP 2016-03-26 Completed University of 00:00:00 [facility] Influenza Virus 2016-03-26 Completed Universit y of Vaccine Quad IM 3+ 00:00:00 [facility] TDAP 2016-03-26 Completed University of 00:00:00 [facility] Influenza Virus 2016-03-26 Completed Universit y of Vaccine Quad IM 3+ 00:00:00 [facility] TDAP 2016-03-26 Completed University of 00:00:00 [facility] Influenza Virus 2016-03-26 Completed Universit y of Vaccine Quad IM 3+ 00:00:00 [facility] TDAP 2016-03-26 Completed University of 00:00:00 [facility] Influenza Virus 2016-03-26 Completed Universit y of Vaccine Quad IM 3+ 00:00:00 [facility] TDAP 2016-03-26 Completed University of 00:00:00 [facility] Influenza Virus 2016-03-26 Completed Universit y of Vaccine Quad IM 3+ 00:00:00 [facility] TDAP 2016-03-26 Completed University of 00:00:00 [facility] Influenza Virus 2016-03-26 Completed Universit y of Vaccine Quad IM 3+ 00:00:00 [facility] TDAP 2016-03-26 Completed University of 00:00:00 [facility] Influenza Virus 2016-03-26 Completed Universit y of Vaccine Quad IM 3+ 00:00:00 [facility] TDAP 2016-03-26 Completed University of 00:00:00 [facility] Influenza Virus 2016-03-26 Completed Universit y of Vaccine Quad IM 3+ 00:00:00 [facility] TDAP 2016-03-26 Completed University of 00:00:00 [facility] Influenza Virus 2016-03-26 Completed Universit y of Vaccine Quad IM 3+ 00:00:00 [facility] TDAP 2016-03-26 Completed University of 00:00:00 [facility] Influenza Virus 2016-03-26 Completed Universit y of Vaccine Quad IM 3+ 00:00:00 [facility] TDAP 2016-03-26 Completed University of 00:00:00 [facility] Influenza Virus 2016-03-26 Completed Universit y of Vaccine Quad IM 3+ 00:00:00 [facility] TDAP 2016-03-26 Completed University of 00:00:00 [facility] Influenza Virus 2016-03-26 Completed Universit y of Vaccine Quad IM 3+ 00:00:00 [facility] TDAP 2016-03-26 Completed University of 00:00:00 [facility] Influenza Virus 2016-03-26 Completed Universit y of Vaccine Quad IM 3+ 00:00:00 [facility] TDAP 2016-03-26 Completed University of 00:00:00 [facility] Influenza Virus 2016-03-26 Completed Universit y of Vaccine Quad IM 3+ 00:00:00 [facility] Influenza Virus 2015-10-31 Completed Universit y of Vaccine Quad IM 3+ 00:00:00 [facility] Influenza Virus 2015-10-31 Completed Universit y of Vaccine Quad IM 3+ 00:00:00 [facility] Influenza Virus 2015-10-31 Completed Universit y of Vaccine Quad IM 3+ 00:00:00 [facility] Influenza Virus 2015-10-31 Completed Universit y of Vaccine Quad IM 3+ 00:00:00 [facility] Influenza Virus 2015-10-31 Completed Universit y of Vaccine Quad IM 3+ 00:00:00 [facility] Influenza Virus 2015-10-31 Completed Universit y of Vaccine Quad IM 3+ 00:00:00 [facility] Influenza Virus 2015-10-31 Completed Universit y of Vaccine Quad IM 3+ 00:00:00 [facility] Influenza Virus 2015-10-31 Completed Universit y of Vaccine Quad IM 3+ 00:00:00 [facility] Influenza Virus 2015-10-31 Completed Universit y of Vaccine Quad IM 3+ 00:00:00 [facility] Influenza Virus 2015-10-31 Completed Universit y of Vaccine Quad IM 3+ 00:00:00 [facility] Influenza Virus 2015-10-31 Completed Universit y of Vaccine Quad IM 3+ 00:00:00 [facility] Influenza Virus 2015-10-31 Completed Universit y of Vaccine Quad IM 3+ 00:00:00 [facility] Influenza Virus 2015-10-31 Completed Universit y of Vaccine Quad IM 3+ 00:00:00 [facility] Influenza Virus 2015-10-31 Completed Universit y of Vaccine Quad IM 3+ 00:00:00 [facility] Vital Signs Vital Name Observation Time Observation Value Comments Source Systolic blood 2020-09-06 16:14:00 136 mm[Hg] Univer sity of pressure [facility] Diastolic blood 2020-09-06 16:14:00 94 mm[Hg] Unive rsity of pressure [facility] Heart rate 2020-09-06 15:11:00 102 /min [facility] Body temperature 2020-09-06 15:11:00 36.78 Chantelle [facility] Respiratory rate 2020-09-06 15:11:00 16 /min [facility] Body height 2020-09-06 15:11:00 162.6 cm [facility] Body weight 2020-09-06 15:11:00 76.8 kg [facility] BMI 2020-09-06 15:11:00 29.06 kg/m2 [facility] Procedures Procedure Date / Time Performed Performing Clinician Sour e ASSIGNMENT OF BENEFITS 2020-09-06 14:57:36 Doctor Unassigned, No [facility] Encounters Start End Encounter Admission Attending Care Care Encounter Source Date/Time Date/Time Type Type Clinicians Facility Department ID 2021-02-20 2021-02-20 Outpatient R DARREN, [facility] [id number] Univers 16:00:00 16:00:00 VICKIE [id number] malik archer [facility] 2021-02-20 2021-02-20 Outpatient R DARREN, [facility] [id number] Univers 16:00:00 16:00:00 VICKIE villarreal [facility] 2021-02-14 2021-02-14 Telephone [facility] [id number] Univers 00:00:00 00:00:00 Vickie Overton CANDY PACKER [id number] ity of [facility] [id number] Nirav as MATERNAL [id number] [facility] [address] [place] [address] 2020-09-17 2020-09-17 [facility] [id number] Univers 00:00:00 00:00:00 Vickie Overton CANDY PACKER [id number] ity of REGIONAL [id number] Nirav as MATERNAL [phone] [facility] & CHILD [address] [place] [address] 2020-09-12 2020-09-12 [facility] [id number] Univers 00:00:00 00:00:00 Vickie C CANDY PACKER [id number] ity of [facility] [id number] Nirav as MATERNAL [phone] [facility] & CHILD [address] [place] [address] 2020-09-10 2020-09-10 Telephone [facility] [id number] Univers 00:00:00 00:00:00 Vickie C CANDY PACKER [id number] ity of [facility] [id number] Nirav as MATERNAL [phone] [address] 2020-09-10 2020-09-10 Telephone [facility] [id number] Univers 00:00:00 00:00:00 Vickie C CANDY PACKER [id number] ity of [id number] Nirav as MATERNAL [phone] [facility] & CHILD [address] [place] [address] 2020-09-06 2020-09-06 Office [facility] [id number] Univers 10:00:50 11:15:07 Visit Vickie C CANDY PACKER [id number] ity of [id number] Nirav as MATERNAL [phone] [address] 2020-09-06 2020-09-06 [facility] [id number] Univers 10:00:00 10:00:00 VICKIE [id number] williey o f [facility] 2020-09-06 2020-09-06 [facility] [id number] Univers 10:00:00 10:00:00 VICKIE gan o f [facility] 2020-09-06 2020-09-06 Orders Doctor INTERIANO [id number] Univers 00:00:00 00:00:00 Only Unassigned, MAURISIO [id number] ity of [place] [facility] [id number] Nirav as [phone] [address] 2020-09-03 2020-09-03 Telephone Pcp, [facility] [id number] Univers 00:00:00 00:00:00 Patient CANDY PACKER [id number] it y of Does Not [id number] MATERNAL [id number] Med ical & CHILD [address] [place] [address] 2020-07-05 2020-07-05 [facility] [id number] Univers 08:00:00 08:00:00 JOAO [id number] [facility]ieFormerly [facility] 2020-07-05 2020-07-05 Outpatient R JAROD [facility] [id number] Univers 08:00:00 08:00:[address] [facility] 2020-06-08 2020-06-08 Outpatient R DARREN [facility] [id number] Univers 08:30:00 08:30:00 VICKIE [id number] [facility]ieFormerly [facility] 2020-06-08 2020-06-08 Outpatient R DARREN [facility] [id number] Univers 08:30:00 08:30:00 VICKIE [facility] Results This patient has no known results.
[2021-05-23] MEDS ORDERED: MEPERIDINE HCL 50 MG/ML ONE (23:43)
[2021-05-23] MEDS ORDERED: ONDANSETRON 4 MG (ODT) TAB ONE (23:44)
[2021-05-23] MEDS ORDERED: BUPIVACAINE 0.5% PF 10 ML VIAL ONE (23:44)
--- NOTE | 2021-05-24 00:51 | ER ---
Nurse's Notes [facility] Name: Barbie Antoine Age: 36 yrs Sex: Female : 1985 Arrival Date: 05/23/2021 Time: 21:48 Bed 12 Private MD: Diagnosis: Fractured tooth;Dentalgia Presentation: 05/23 21:59 Chief complaint: Patient states: I am having severe mouth pain in the upper back right ld1 wisdom tooth. Pt reports coming here two days ago and received antibiotics and took tylenol. Pt crying and saying her mouth hurts so bad. Coronavirus screen: At this time, the client does not indicate any symptoms associated with coronavirus-19. Ebola Screen: No symptoms or risks identified at this time. Initial Sepsis Screen: Does the patient meet any 2 criteria? No. Patient's initial sepsis screen is negative. Does the patient have a suspected source of infection? No. Patient's initial sepsis screen is negative. Risk Assessment: Do you want to hurt yourself or someone else? Patient reports no desire to harm self or others. Onset of symptoms was May 23, 2021. 21:59 Method Of Arrival: Ambulatory ld1 21:59 Acuity: AMY 4 ld1 Triage Assessment: 22:00 General: Appears in no apparent distress. uncomfortable, Behavior is cooperative, ld1 anxious, crying. Pain: Complains of pain in upper right third molar Pain does not radiate. Pain currently is 8 out of 10 on a pain scale. at worst was 10 out of 10 on a pain scale. Quality of pain is described as stabbing, throbbing, Pain began gradually, Is continuous. EENT: No signs and/or symptoms were reported regarding the EENT system. Neuro: Level of Consciousness is awake, alert, obeys commands, Oriented to person, place, time, situation, Appropriate for age. Cardiovascular: Capillary refill < 3 seconds Patient's skin is warm and dry. Respiratory: Airway is patent Respiratory effort is even, unlabored, Respiratory pattern is regular, symmetrical. GI: Abdomen is flat, non-distended. : No signs and/or symptoms were reported regarding the genitourinary system. Derm: No signs and/or symptoms reported regarding the dermatologic system. Musculoskeletal: No signs and/or symptoms reported regarding the musculoskeletal system. 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 - Social history:: Smoking status: Patient denies any tobacco usage or history of. Patient uses alcohol, occasionally. Screenin/03 00:03 Abuse screen: Denies threats or abuse. Denies injuries from another. Nutritional lp1 screening: No deficits noted. Tuberculosis screening: No symptoms or risk factors identified. Fall Risk None identified. Assessment: 00:04 General: Appears in no apparent distress. Behavior is anxious. Pain: Complains of pain lp1 in right jaw Pain currently is 10 out of 10 on a pain scale. Neuro: Level of Consciousness is awake, alert, obeys commands. Cardiovascular: Patient's skin is warm and dry. Respiratory: Respiratory effort is even, unlabored. GI: No signs and/or symptoms were reported involving the gastrointestinal system. : No signs and/or symptoms were reported regarding the genitourinary system. EENT: Poor dentition noted. Derm: Skin is pink, warm \T\ dry. Musculoskeletal: No deficits noted. 01:03 Reassessment: Patient is alert, oriented x 3, equal unlabored respirations, skin lp1 warm/dry/pink. Patient states feeling better. Patient states symptoms have improved. Vital Signs: 05/23 21:59 BP 146 / 115; Pulse 104; Resp 18; Temp 98.4(O); Pulse Ox 98% on R/A; Weight 79.38 kg; ld1 Height 5 ft. 5 in. (165.10 cm); Pain 8/10; 05/24 00:04 BP 124 / 80; Pulse 82; Resp 18; Pulse Ox 98% on R/A; lp1 05/23 21:59 Body Mass Index 29.12 (79.38 kg, 165.10 cm) ld1 ED Course: 05/23 21:48 Patient arrived in ED. ja2 22:00 Triage completed. ld1 22:00 Arm band placed on right wrist. ld1 22:33 Leo Zuniga PA is PHCP. jr8 22:33 Ramos Freedman MD is Attending Physician. jr8 05/24 00:03 Peggy Duckworth, RN is Primary Nurse. lp1 00:03 Assist provider with nerve block (dental) Set up for procedure. Performed by Leo [email or web address] Nadia PEREIRA. 00:05 Patient has correct armband on for positive identification. lp1 01:03 Patient did not have IV access during this emergency room visit. lp1 Administered Medications: 05/23 23:50 Drug: Marcaine (bupivacaine) (0.25 %) 1 vials Route: Infiltration; lp1 05/24 00:03 Drug: Demerol (meperidine) 50 mg Route: IM; Site: left deltoid; lp1 01:02 Follow up: Response: Marked relief of symptoms lp1 00:03 Drug: Zofran (Ondansetron) 4 mg Route: PO; lp1 01:03 Follow up: Response: No adverse reaction lp1 Outcome: 00:51 Discharge ordered by MD. jr8 01:03 Discharged to home ambulatory, with friend. lp1 01:03 Condition: good 01:03 Discharge instructions given to patient, Instructed on discharge instructions, follow up and referral plans. Demonstrated understanding of instructions, follow-up care. 01:03 Patient left the ED. lp1 Signatures: Peggy Duckworth, RN RN [email or web address] Leo Zuniga PA PA jr8 Nicolasa Harper RN RN ld1 Samara Abel Corrections: (The following items were deleted from the chart) 05/23 22:01 22:00 Allergies: Aspirin; ld1 ld1
--- NOTE | 2021-05-24 00:52 | EDPHYS ---
Physician Documentation [facility] Name: Barbie Antoine Age: 36 yrs Sex: Female : 1985 Arrival Date: 05/23/2021 Time: 21:48 Bed 12 Private MD: ED Physician Ramos Freedman HPI: 05/24 00:02 This 36 yrs old Female presents to ER via Ambulatory with complaints of Mouth jr8 Problem. 00:02 The patient has been recently seen at the [facility] Emergency jr8 Department, this week, for similar complaints was given a prescription for antibiotics, was given a prescription for pain medications. Is a 36-year-old female that presented to the emergency room with complaints of tooth pain to the right lower jaw. Patient was seen a few days ago for similar complaints and was put on antibiotics and pain medicine as she has a chipped wisdom tooth. Came back today for continued pain that is not being relieved with her oral medication.. 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 - Social history:: Smoking status: Patient denies any tobacco usage or history of. Patient uses alcohol, occasionally. ROS: 05/24 00:02 Eyes: Negative for injury, pain, redness, and discharge, Neck: Negative for injury, jr8 pain, and swelling, Cardiovascular: Negative for chest pain, palpitations, and edema, Respiratory: Negative for shortness of breath, cough, wheezing, and pleuritic chest pain, Abdomen/GI: Negative for abdominal pain, nausea, vomiting, diarrhea, and constipation, Back: Negative for injury and pain, MS/Extremity: Negative for injury and deformity, Skin: Negative for injury, rash, and discoloration, Neuro: Negative for headache, weakness, numbness, tingling, and seizure. ENT: Positive for dental pain. Exam: 00:02 Head/Face: Normocephalic, atraumatic. Eyes: Pupils equal round and reactive to light, jr8 extra-ocular motions intact. Lids and lashes normal. Conjunctiva and sclera are non-icteric and not injected. Cornea within normal limits. Periorbital areas with no swelling, redness, or edema. Neck: Trachea midline, no thyromegaly or masses palpated, and no cervical lymphadenopathy. Supple, full range of motion without nuchal rigidity, or vertebral point tenderness. No Meningismus. 00:02 Cardiovascular: Regular rate and rhythm with a normal S1 and S2. No gallops, murmurs, or rubs. Normal PMI, no JVD. No pulse deficits. Respiratory: Lungs have equal breath sounds bilaterally, clear to auscultation and percussion. No rales, rhonchi or wheezes noted. No increased work of breathing, no retractions or nasal flaring. Skin: Warm, dry with normal turgor. Normal color with no rashes, no lesions, and no evidence of cellulitis. MS/ Extremity: Pulses equal, no cyanosis. Neurovascular intact. Full, normal range of motion. Neuro: Awake and alert, GCS 15, oriented to person, place, time, and situation. Motor strength 5/5 in all extremities. Sensory grossly intact. 00:02 ENT: Exam is negative for earache, ear discharge, TM abnormalities, nasal discharge, enlarged tonsils, peritonsillar abscess pharyngitis, dysphagia, exudate, abnormal voice, Dental exam: fractured teeth are noted, specifically the lower right third molar (#32), pain, that is severe, specifically in the lower right third molar (#32). Vital Signs: 05/23 21:59 BP 146 / 115; Pulse 104; Resp 18; Temp 98.4(O); Pulse Ox 98% on R/A; Weight 79.38 kg; ld1 Height 5 ft. 5 in. (165.10 cm); Pain 8/10; 05/24 00:04 BP 124 / 80; Pulse 82; Resp 18; Pulse Ox 98% on R/A; lp1 05/23 21:59 Body Mass Index 29.12 (79.38 kg, 165.10 cm) ld1 MDM: 05/23 22:34 Patient medically screened. jr8 05/24 00:02 Data reviewed: vital signs, nurses notes, and as a result, I will discharge patient. jr8 Data interpreted: Pulse oximetry: on room air is 98 %. Interpretation: normal. Counseling: I had a detailed discussion with the patient and/or guardian regarding: the historical points, exam findings, and any diagnostic results supporting the discharge/admit diagnosis, the need for outpatient follow up, a dentist. 00:50 ED course: Patient feeling markedly better. We will discharge her home to follow-up jr8 with her dentist.. Administered Medications: 05/23 23:50 Drug: Marcaine (bupivacaine) (0.25 %) 1 vials Route: Infiltration; lp1 05/24 00:03 Drug: Demerol (meperidine) 50 mg Route: IM; Site: left deltoid; lp1 01:02 Follow up: Response: Marked relief of symptoms lp1 00:03 Drug: Zofran (Ondansetron) 4 mg Route: PO; lp1 01:03 Follow up: Response: No adverse reaction lp1 Disposition: 08:35 Co-signature as Attending Physician, Ramos Freedman MD I agree with the assessment and dionicio plan of care. Disposition Summary: 05/24/21 00:51 Discharge Ordered Location: Home jr8 Problem: new jr8 Symptoms: have improved jr8 Condition: Stable jr8 Diagnosis - Fractured tooth jr8 - Dentalgia jr8 Followup: jr8 - With: Private Physician - When: 1 - 2 days - Reason: Recheck today's complaints, Continuance of care, Re-evaluation by your physician Discharge Instructions: - Discharge Summary Sheet jr8 - Dental Pain jr8 Forms: - Medication Reconciliation Form jr8 - Thank You Letter jr8 - Antibiotic Education jr8 - Prescription Opioid Use jr8 Signatures: Ramos Freedman MD MD cha Pena, Laura, RN RN lp1 Leo Zuniga PA PA jr8 Nicolasa Harper, RN RN ld1 Corrections: (The following items were deleted from the chart) 05/23 22:01 22:00 Allergies: Aspirin; ld1 ld1
[2021-05-24 01:22] VITALS: TEMP 98.4; O2SAT 98
[2021-05-24 01:24] VITALS: BP 124/80
== END 2021-05-24 01:03 | disposition home or self-care (01) ==
LOC: ER 21:44
DX: S02.5XXA Fracture of tooth (traumatic), initial encounter for closed fracture (principal)
CPT/HCPCS: 96372; 99283; J2175